=== PATIENT | male | born 1965 | race Caucasian/White ===

== ENCOUNTER 2016-06-07 21:59 | Emergency (ER) | payer MEDICAID | END 2016-06-08 00:18 | disposition home or self-care (01) | LOC: D.ER 21:59 | DX: J70.5 Respiratory conditions due to smoke inhalation (principal); R05 Cough; F41.9 Anxiety disorder, unspecified; I10 Essential (primary) hypertension; E78.5 Hyperlipidemia, unspecified; F17.200 Nicotine dependence, unspecified, uncomplicated ==

== ENCOUNTER 2016-06-08 18:46 | Emergency (ER) | payer MEDICAID | END 2016-06-08 22:10 | disposition home or self-care (01) | LOC: D.ER 18:46 | DX: T26.12XA Burn of cornea and conjunctival sac, left eye, initial encounter (principal); T26.11XA Burn of cornea and conjunctival sac, right eye, initial encounter; X08.8XXA Exposure to other specified smoke, fire and flames, initial encounter; Y93.89 Activity, other specified; Y92.89 Other specified places as the place of occurrence of the external cause; H57.13 Ocular pain, bilateral; F41.9 Anxiety disorder, unspecified; I10 Essential (primary) hypertension; E78.5 Hyperlipidemia, unspecified; F17.200 Nicotine dependence, unspecified, uncomplicated ==

== ENCOUNTER 2016-11-30 18:10 | Emergency (ER) | payer MEDICARE ==
[2016-11-30 19:30] LABS: BASOPHILS 0.2 % (0-2); EOSINOPHILS 0.7 % (0-7); HEMATOCRIT 43.5 % (42.0-54.0); HEMOGLOBIN 15.3 g/dL (13.5-17.5); IMMATURE GRANULOCYTES 0.4 % (0-5); LYMPHOCYTES 25.9 % (15-50); MCH 30.8 pg (26.0-34.0); MCHC 35.2 g/dL (31.0-37.0); MCV 87.5 fL (80.0-100.0); MEAN PLATELET VOLUME 8.7 fL (7.4-10.4); MONOCYTES 6.8 % (2-11); PLATELET COUNT 294 10x3/uL (130-400); RBC 4.97 10x6/uL (4.20-6.10); RDW 12.8 % (11.5-14.5); WBC 10.7 10x3/uL (4.8-10.8)
[2016-11-30 19:45] LABS: CALC OSMOLALITY 282 mosm/kg (275-300); CALCIUM 9.8 mg/dL (8.5-10.1); CARBON DIOXIDE 25.4 mmol/L (21.0-32.0); CHLORIDE - SERUM 104 mmol/L (98-107); GLUCOSE 110 mg/dL (74-106); POTASSIUM - SERUM 3.4 mmol/L (3.5-5.1); SODIUM 141 mmol/L (136-145); UREA NITROGEN 15 mg/dL (7-18); eGFR NON AFRICAN AMERICAN 84 mL/min (90-120)
== END 2016-11-30 21:07 | disposition home or self-care (01) ==
LOC: D.ER 18:10
PROVIDERS: Emergency Medicine
DX: J01.90 Acute sinusitis, unspecified (principal); F17.200 Nicotine dependence, unspecified, uncomplicated

== ENCOUNTER → 2016-12-08 11:56 | Outpatient (CLI) | payer MEDICARE | END | disposition home or self-care (01) | LOC: D.CT 12-07 12:00 | DX: G45.9 Transient cerebral ischemic attack, unspecified (principal) ==

== ENCOUNTER → 2017-06-26 12:43 | Outpatient (CLI) | payer MEDICARE | END | disposition home or self-care (01) | LOC: D.US 12:43 | DX: I65.23 Occlusion and stenosis of bilateral carotid arteries (principal) ==

== ENCOUNTER 2018-04-05 12:08 | Inpatient (IN) | payer MEDICARE ==
[~2018-04-05] VITALS: Ht 182.9 cm; Wt 127.3 kg
--- NOTE | ~2018-04-05 | HEMODYNAMI ---
PATIENT:TAMARA JOHNSON MEDICAL RECORD: [id number] : 67 LOCATION:D. ADMISSION DATE: 04/05/18 Generatedon:04/05/201815:07 Patient name: TAMARA JOHNSON Patient #: [id number] SSN: D OB: 1965 Date of study: 04/05/2018 Page: Of Hemodynamic Procedure Report Patient Data Patient Demographics Procedure consent was obtained First Name: TAMARA Gender: Male Last Name: ELIZABETH : 1965 Middle Initial: D Age: 52 year(s) Patient #: [id number] Race: Unknown Additional ID: [id number] Contact details [address]: [address] [place] [address] State: [place] City: [place] Zip code: [address] Past Medical History Allergies: No known allergies Admission Admission Data Admission Date: 04/05/2018 Admission Time: 12:08 Procedure Procedure Types Cath Procedure Diagnostic Procedure LHC LHC w/Coronaries Procedure Description Procedure Date Procedure Date: 04/05/2018 Procedure Start Time: 14:50 Procedure End Time: 15:03 Procedure Staff Name Function Alfonso Jurado MD Performing Physician Edy Minor RT Monitor Shelly Cordero RT Scrub Nabila Rao RT Scrub Saskia Burns RN Nurse Procedure Data Cath Procedure Fluoroscopy Diagnostic fluoroscopy Total fluoroscopy Time: 3.6 time: 3.6 min min Diagnostic fluoroscopy Total fluoroscopy dose: dose: 1050 mGy 1050 mGy Contrast Material Contrast Material Type Amount (ml) Isovue 300 84 Entry Location Entry Primary Successful Side Size Upsize Upsize Entry Closure [place] ccessful Closure Location (Fr) 1 (Fr) 2 (Fr) Remarks Device Remarks Radial Right 6 Fr Mechanical artery Short Compression Diagnostic catheters Device Type Used For End Catheter Placement DIAGNOSTIC [place] 110cm 5 LV Angiography Fr catheter ([id number]) Procedure Complications No complications Procedure Medications Medication Administration Route Dosage Versed I.V. 2 mg Fentanyl I.V. 50 mcg Versed I.V. 2 mg Fentanyl I.V. 50 mcg 0.9% NaCl I.V. 100 ml/hr Oxygen etCO2 Nasal cannula 2 l/min Lidocaine 2% added to field 20 Heparin Flush Bag added to field 2 bags (1000units/500ml NS) Heparin Bolus I.V. 4000 units Integrilin (Bolus I.V. 11.3 ml 2mg/ml) Hemodynamics Rest Heart Rate: 84 (bpm) Snapshots Pre Cath Intra NCS Post Cath Vital Signs Time Heart Resp SPO2 etCO2 NIBP (mmHg) Rhythm Pain Sedation Rate (ipm) (%) (mmHg) Status Level (bpm) 14:40:22 81 22 98 30 142/77(105) NSR 0 (11) 10(A) , No pain 14:44:38 84 19 100 32.3 147/81(106) NSR 0 (11) 10(A) , No pain 14:48:52 89 17 96 35.3 122/68(84) NSR 0 (11) 10(A) , No pain 14:53:03 99 15 96 28.5 98/54(70) NSR 0 (11) 9(A) , No pain 14:58:07 81 11 97 10.5 109/58(79) NSR 0 (11) 9(A) , No pain 15:02:17 87 12 99 30.7 114/69(79) NSR 0 (11) 10(A) , No pain Medications Time Medication Route Dose Verified Delivered Reason Notes Effectiveness by by 14:45:10 Oxygen etCO2 2 Alfonso Saskia used for Nasal l/min Adrien Burns procedure cannula RN 14:45:21 Lidocaine 2% added 20ml Alfonso Alfonso for local to vial Adrien Jurado MD anesthetic field 14:45:31 Heparin Flush added 2 Alfonso Alfonso used for Bag to bags Adrien Jurado MD procedure (1000units/500ml field NS) 14:45:43 0.9% NaCl I.V. 100 Alfonso Saskia used for ml/hr Adrien Burns glass inspector 14:47:09 Fentanyl I.V. 50 Alfonso Saskia for sedation mcg Adrien Burns RN 14:47:48 Versed I.V. 2 mg Alfonso Saskia for sedation Adrien Burns RN 14:51:21 Versed I.V. 2 mg Alfonso Saskia for sedation Adrien Burns RN 14:51:34 Fentanyl I.V. 50 Alfonso Kruger for sedation mcg Adrien Burns RN 14:51:43 Heparin Bolus I.V. 4000 Alfonso Hamilton for verif ied units Adrien Jurado MD anticoagulation with Dr. Jurado 14:51:45 Integrilin I.V. 11.3 Alfonso Kruger for waste d (Bolus 2mg/ml) ml Adrien Burns anticoagulation 2.7mL systems technician Log Time Note 14:25:57 Diagnostic Cath Status : Elective 14:26:38 Saskia Burns RN sent for patient. Start room use. 14:26:39 Time tracking: Regular hours (M-F 7:00 - 5:00) 14:26:44 Plan of Care:Hemodynamics will remain stable., Cardiac rhythm will remain stable., Comfort level will be maintained., Respiratory function will remain adequate., Patient/ family verbilizes understanding of procedure., Procedure tolerated without complication., Recovers from procedure without complications.. 14:39:09 Patient received from ED to CCL 2 Alert and oriented. Tansferred to table in Supine position. 14:39:10 Warm blankets applied, and eber hugger turned on for patient comfort. 14:39:10 Correct patient and procedure confirmed by team. 14:39:11 Signed procedure consent form obtained from patient. 14:39:13 Baseline sample Acquired. 14:39:13 ECG and BP/O2 sat monitors applied to patient. 14:39:13 Vital chart was started 14:39:16 Rhythm: sinus rhythm 14:39:17 Full Disclosure recording started 14:40:46 H&P Date Dictated: 04/05/2018 Emergent; H&P N/A. 14:40:48 Pre-procedure instructions explained to patient. 14:40:48 Pre-op teaching completed and patient verbalized understanding. 14:40:50 Family unavailable. 14:40:56 Patient NPO since Breakfast. 14:41:08 Patient allergic to No known allergies 14:41:10 Is the patient allergic to Iodine/contrast media? No. 14:41:15 Is patient on blood thinner?Yes 14:41:30 ACC The patient was administered the following blood thiners within the last 24 hours: ACCPlavix 14:41:32 Patient diabetic? Yes. 14:41:34 If diabetic: On Metformin? No 14:41:35 ----Pre-sedation anethsthesia assessment.---- 14:41:37 Previous problem with sedation/anesthesia? No ? 14:41:39 Snore? Yes 14:41:40 Sleep apnea? No 14:41:42 Deviated septum? No 14:41:43 Opens mouth fully? Yes 14:41:44 Sticks out tongue? Yes 14:41:47 Airway obstruction? No ? 14:41:50 Dentures? No ? 14:41:53 Pre procedure: right dorsailis pedis pulse 2+ Normal; easily identifiable; not easily obliterated 14:41:57 Modified Girish's test Ulnar < 7 seconds 14:42:01 Patient pain scale 0/10 ?. 14:42:15 IV patent on arrival in left hand with 0.9% NaCl at 10ml/hr. 14:42:29 Lab results completed and on chart. 14:42:32 Right Radial & Right Groin area was prepped with chlora-prep and draped in sterile fashion 14:42:33 Alarms reviewed by R. N. 14:42:33 Sharps counted by scrub and verified by R.N. 14:45:10 Oxygen 2 l/min etCO2 Nasal cannula was administered by Saskia Burns RN; used for procedure; 14:45:21 Lidocaine 2% 20ml vial added to field was administered by Alfonso Jurado MD; for local anesthetic; 14:45:31 Heparin Flush Bag (1000units/500ml NS) 2 bags added to field was administered by Alfonso Jurado MD; used for procedure; 14:45:43 0.9% NaCl 100 ml/hr I.V. was administered by Saskia Burns RN; used for procedure; 14:46:54 --------ALL STOP TIME OUT------ 14:46:55 Final Timeout: patient, procedure, and site verified with staff and physician. All members of the team are in agreement. 14:46:56 Right Radial & Right Groin site verified by team. 14:47:00 Fire Safety Assessment: A--An alcohol-based skin anteseptic being used preoperatively., C--Open oxygen or nitrous oxide is being used., D--An ESU, laser, or fiber-optic light is being used. 14:47:04 Physical assessment completed. ASA score P 2 - A patient with mild systemic disease as per Alfonso Jurado MD. 14:47:07 Sedation plan: IV Moderate Sedation Medication:Versed, Fentanyl 14:47:09 Fentanyl 50 mcg I.V. was administered by Saskia Burns RN; for sedation; 14:47:14 Use device set Radial Dx or PCI 14:47:15 ACIST Syringe (06453) opened to sterile field. 14:47:15 Medline Cath Pack ([id number]) opened to sterile field. 14:47:16 Bag Decanter (2002S) opened to sterile field. 14:47:16 DIAGNOSTIC WIRE .035 260cm J wire (744934) opened to sterile field. 14:47:17 ACIST Hand Control (74603) opened to sterile field. 14:47:17 ACIST Manifold (27238) opened to sterile field. 14:47:18 Tegaderm 4 x 4 (1626W) opened to sterile field. 14:47:18 MBrace Wrist Support ([id number]) opened to sterile field. 14:47:32 SHEATH 6FR Slender (60-2236) opened to sterile field. 14:47:48 Versed 2 mg I.V. was administered by Saskia Burns RN; for sedation; 14:50:10 Procedure started. 14:50:20 Local anesthetic to right radial artery with Lidocaine 2% by Alfonso Jurado MD.INITIAL ACCESS ONLY 14:50:30 A 6 Fr Short sheath was inserted into the Right Radial artery 14:50:48 Zero performed for pressure channel P1 14:50:51 Zero performed for pressure channel P1 14:50:54 Zero performed for pressure channel P1 14:50:56 Zero performed for pressure channel P1 14:51:21 Versed 2 mg I.V. was administered by Saskia Burns RN; for sedation; 14:51:34 Fentanyl 50 mcg I.V. was administered by Saskia Burns RN; for sedation; 14:51:43 Heparin Bolus 4000 units I.V. was administered by Alfonso Jurado MD; for anticoagulation; verified with Dr. Jurado 14:51:45 Integrilin (Bolus 2mg/ml) 11.3 ml I.V. was administered by Saskia Burns RN; for anticoagulation; wasted 2.7mL 14:51:48 A DIAGNOSTIC [place] 110cm 5 Fr catheter ([id number]) was advanced over the wire and used for LV Angiography. 14:51:53 LV angiography performed. 14:52:43 EF : 60 % 14:52:49 LCA angiography performed. 14:53:44 RCA angiography performed. 14:53:54 Catheter removed. 14:54:41 6 Fr ar 2 sh guide catheter was inserted over the wire 14:54:48 GUIDE 6FR AR 2.0 SH catheter ([id number]) opened to sterile field. 14:54:55 CHOICE PT Extra Support 182cm wire ([id number]) opened to sterile field. 14:56:27 cptes wire advanced. 14:57:55 Place stent Inflation Number: 1 A INTEGRITY RX 2.5 x 12 stent ([id number]) was prepped and advanced across the R PDA. The stent was deployed at 13 IMANI for 0:38 (min:sec). 14:58:16 INFLATOR Merit BasixCompak ([id number]) opened to sterile field. 14:59:48 Place stent Inflation Number: 1 A INTEGRITY RX 3.5 x 26 stent ([id number]) was prepped and advanced across the Mid RCA. The stent was deployed at 15 IMANI for 0:15 (min:sec). 15:00:14 Stent catheter was removed intact over wire. 15:00:15 Wire removed. 15:00:22 Guide catheter removed. 15:00:31 Sheath removed intact; hemostasis achieved with Mechanical Compression to the Right Radial artery. 15:00:36 Contrast amount:Isovue 300 84ml. 15:02:07 Procedure ended.(Physican Out) 15:02:18 Fluoroscopy time 03.60 minutes. 15:02:23 Fluoroscopy dose: 1050 mGy 15:02:23 Flurop Dose total: 1050 15:02:24 TR band inflated with 10cc of air. 15:02:32 Sharps counted by scrub and verified by R.N. 15:02:33 Insertion/operative site no bleeding no hematoma. 15:02:37 Post-op/insertion site Right Radial artery dressed using a 4 x 4 and Tegaderm. 15:02:45 Post right radial artery:stable 15:02:46 Post Procedure Pulses reassessed and unchanged 15:02:50 Post-procedure physical assessment completed. ASA score P 2 - A patient with mild systemic disease as per Alfonso Jurado MD. 15:02:53 Post procedure rhythm: sinus rhythm 15:02:55 Post procedure instruction explained to patient.Patient verbalizes understanding. 15:02:56 Procedure and supply charges have been captured, reviewed, submitted and are correct. 15:03:00 Procedure Complication : No complications 15:03:03 Vital chart was stopped 15:03:03 See physician's report for complete and final results. 15:03:06 Report given to PCU. 15:03:10 Patient transfered to PCU with Bed. 15:03:12 Procedure ended. 15:03:12 Full Disclosure recording stopped 15:03:19 ACC-PCI Only Patient was given prescriptions, or instructed by Alfonso Jurado MD to start/continue the following medications upon discharge: Plavix 15:03:20 End room use (Document Last) Intervention Summary Intervention Notes Time ActionType Lesion and Equipment Action# Pressure Duration Attributes Used 14:57:55 Place stent R PDA INTEGRITY RX 1 13 00:38 2.5 x 12 stent ([id number]) 14:59:48 Place stent Mid RCA INTEGRITY RX 1 15 00:15 3.5 x 26 stent ([id number]) Device Usage Item Name Manufacture Quantity Catalog Number Hospital Part Current [facility] Lot# / Charge Number Stock Stock Serial# Code ACIST Acist 1 86867 719404 782672 168752 20 Syringe Medical (36119) Systems Inc Medline Cath Medline 1 [id number] 572378 09672 456518 5 Pack ([id number]) Bag Decanter Microtek 1 2001S 492687 87200 892150 5 () Medical Inc. DIAGNOSTIC St Raghav 1 105944 104281 725927 793691 30 WIRE .035 260cm J wire (401148) ACIST Hand Acist 1 95666 668037 780149 212423 5 Control Medical (54442) Systems Inc ACIST Acist 1 80165 716824 342976 383685 5 Manifold Medical (39953) Systems Inc Tegaderm 4 x 3M 1 1626W 112134 284208 402001 5 4 (1626W) MBrace Wrist Advanced 1 140-0250-00 895603 66575 709398 5 Support Vascular ([id number]) Dynamics SHEATH 6FR Terumo 1 [id number] 717407 222776 380354 5 Slender (80-1060) DIAGNOSTIC Terumo 1 40-6723 497845 352463 869862 5 [place] 110cm 5 Fr catheter (817872) GUIDE 6FR AR Medtronic 1 [id number] 875290 07592 498539 1 2.0 SH catheter ([id number]) CHOICE PT Harris 1 [id number] 658988 853624 312392 5 Extra Scientific Support 182cm wire ([id number]) INTEGRITY RX Medtronic 1 [id number] 432934 582403 526695 5 [id number] 2.5 x 12 stent ([id number]) INFLATOR [facility] 1 [id number] 763956 356479 130316 15 [facility] Medical BasixCompak (OP0289) INTEGRITY RX Medtronic 1 [id number] 048968 193515 510545 5 [id number] 3.5 x 26 stent ([id number]) Signature Audit [place] Stage Time Signature Unsigned Intra-Procedure 04/05/2018 Edy Minor RT(Rosa) 3:07:14 PM Signatures Monitor : Edy Minor RT Signature : Date : Time : [id number] [place] [address]
--- NOTE | ~2018-04-05 | HEMODYNAMI ---
PATIENT:TAMARA JOHNSON MEDICAL RECORD: [id number] : 67 LOCATION:D. D.2117 ADMISSION DATE: 04/05/18 Generatedon:04/08/201810:56 Patient name: TAMARA JOHNSON Patient #: [id number] SSN: D OB: 1965 Date of study: 04/08/2018 Page: Of Hemodynamic Procedure Report Patient Data Patient Demographics Procedure consent was obtained First Name: TAMARA Gender: Male Last Name: ELIZABETH : 1965 Middle Initial: D Age: 52 year(s) Patient #: [id number] Race: Unknown Additional ID: [id number] Contact details Address: [address] [place] [address] State: [place] City: [place] Zip code: [address] Past Medical History Allergies: No known allergies Admission Admission Data Admission Date: 04/05/2018 Admission Time: 15:06 Room #: 2117 Procedure Procedure Types Cath Procedure Diagnostic Procedure FFR/IVUS Intra-Coronary IVUS Initial Sedation Charges Moderate Sedation up to 15 minutes PCI Procedure Coronary Stent Coronary Stent Initial x2 Procedure Description Procedure Date Procedure Date: 04/08/2018 Procedure Start Time: 10:34 Procedure End Time: 10:56 Procedure Staff Name Function Alfonso Jurado MD Performing Physician Jessica Corbin RT Monitor Kavin Killian RN Nurse Jessica Corbin RT Scrub Procedure Data Cath Procedure Fluoroscopy Diagnostic fluoroscopy Total fluoroscopy Time: 5.5 time: 5.5 min min Diagnostic fluoroscopy Total fluoroscopy dose: 604 dose: 604 mGy mGy Contrast Material Contrast Material Type Amount (ml) Isovue 300 111 Entry Location Entry Primary Successful Side Size Upsize Upsize Entry Closure Succes sful Closure Location (Fr) 1 (Fr) 2 (Fr) Remarks Device Remarks Femoral Right 6 Fr Exoseal artery Short Estimated blood loss: 10 ml Procedure Complications No complications Procedure Medications Medication Administration Route Dosage 0.9% NaCl I.V. 100 ml/hr Oxygen etCO2 Nasal cannula 2 l/min Heparin Flush Bag added to field 2 bags (1000units/500ml NS) Lidocaine 2% added to field 20 Heparin Bolus I.V. 4000 units Nitroglycerin IC/IA I.C. 200 mcg Hemodynamics Rest Heart Rate: 67 (bpm) Snapshots Pre Cath Intra NCS Post Cath Vital Signs Time Heart Resp SPO2 etCO2 NIBP (mmHg) Rhythm Pain Sedation Rate (ipm) (%) (mmHg) Status Level (bpm) 10:24:16 67 19 100 37.2 155/97(130) NSR 0 (11) 10(A) , No pain 10:28:42 58 11 100 35.6 134/79(99) NSR 0 (11) 10(A) , No pain 10:32:58 53 11 99 40.2 117/71(101) NSR 0 (11) 10(A) , No pain 10:37:27 55 15 97 28.8 118/66(81) NSR 0 (11) 9(A) , No pain 10:41:55 53 19 97 15.9 111/65(85) NSR 0 (11) 9(A) , No pain 10:46:17 60 19 96 2.2 107/66(81) NSR 0 (11) 9(A) , No pain 10:50:39 53 19 96 13.6 113/64(82) NSR 0 (11) 10(A) , No pain 10:55:03 53 9 97 34.1 118/70(82) NSR 0 (11) 10(A) , No pain Medications Time Medication Route Dose Verified Delivered Reason Notes Effectiveness by by 10:26:02 0.9% NaCl I.V. 100 Kavin Kavin Per physician ml/hr Constantin Killian RN RN 10:26:13 Oxygen etCO2 2 Kavin Kavin for low 02 sats Nasal l/min Constantin Killian cannula RN RN 10:26:38 Heparin Flush added 2 Kavin Kavin used for Bag to bags Constantin Killian procedure (1000units/500ml field RN RN NS) 10:26:50 Lidocaine 2% added 20ml Kavin Kavin for local to vial Constantin Killian anesthetic field RN RN 10:37:47 Heparin Bolus I.V. 4000 Kavin Kavin for units Constantin Killian anticoagulation RN RN 10:45:09 Nitroglycerin I.C. 200 Kavin Alfosno for IC/IA [facility] [place] Constantin Jurado MD vasodilation biogeographer Log Time Note 9:56:54 Time tracking: Regular hours (M-F 7:00 - 5:00) 9:56:59 Plan of Care:Hemodynamics will remain stable., Cardiac rhythm will remain stable., Comfort level will be maintained., Respiratory function will remain adequate., Patient/ family verbilizes understanding of procedure., Procedure tolerated without complication., Recovers from procedure without complications.. 9:59:00 Kavin Killian RN sent for patient. Start room use. 10:06:49 Patient received from Med II to CCL 3 Alert and oriented. Tansferred to table in Supine position. 10:06:50 Warm blankets applied, and eber hugger turned on for patient comfort. 10:06:50 Correct patient and procedure confirmed by team. 10:06:53 Signed procedure consent form obtained from patient. 10:06:54 ECG and BP/O2 sat monitors applied to patient. 10:10:00 Full Disclosure recording started 10:10:15 Use device set CATH PACK 10:10:18 Use device set TAUTH PCI 10:10:23 SHEATH 6FR [place] ([id number]) opened to sterile field. 10:10:25 ACIST Syringe (12301) opened to sterile field. 10:10:25 ACIST Hand Control (83138) opened to sterile field. 10:10:26 ACIST Manifold (11147) opened to sterile field. 10:10:26 Medline Cath Pack ([id number]) opened to sterile field. 10:10:27 Bag Decanter (2002S) opened to sterile field. 10:10:27 DIAGNOSTIC WIRE .035 260cm J wire (840752) opened to sterile field. 10:10:28 INFLATOR Merit BasixCompak (AU0093) opened to sterile field. 10:10:29 CHOICE PT Extra Support 182cm wire ([id number]) opened to sterile field. 10:10:54 IV RIGHT HAND NOT WORKING. 10:11:09 IV started by Kavin Killian RN inright forearm with a 20 gauge IV catheter with 0.9% NaCl at KVO. 10:11:18 Previous problem with sedation/anesthesia? No ? 10:11:19 Snore? Yes 10:11:20 Sleep apnea? No 10:11:21 Deviated septum? No 10:11:25 Opens mouth fully? Yes 10:11:27 Sticks out tongue? Yes 10:11:31 Airway obstruction? Yes COPD 10:11:33 Dentures? No ? 10:11:50 H&P Date Dictated: 04/05/2018 Within 30 days and on chart.. 10:11:51 Pre-procedure instructions explained to patient. 10:11:52 Pre-op teaching completed and patient verbalized understanding. 10:11:54 Family unavailable. 10:11:55 Patient NPO since Midnight. 10:11:57 Is the patient allergic to Iodine/contrast media? No. 10:11:59 Is patient on blood thinner?Yes 10:12:01 ACC The patient was administered the following blood thiners within the last 24 hours: ACCPlavix 10:12:03 Patient diabetic? No. 10:12:07 Pre procedure: right dorsailis pedis pulse 2+ Normal; easily identifiable; not easily obliterated 10:12:10 Patient pain scale 0/10 ?. 10:13:28 Lab results completed and on chart. 10:22:37 Vital chart was started 10:22:41 Rhythm: sinus rhythm 10:24:22 Baseline sample Acquired. 10:26:02 0.9% NaCl 100 ml/hr I.V. was administered by Kavin Killian RN; Per physician; 10:26:13 Oxygen 2 l/min etCO2 Nasal cannula was administered by Kavin Killian RN; for low 02 sats; 10:26:38 Heparin Flush Bag (1000units/500ml NS) 2 bags added to field was administered by Kavin Killian RN; used for procedure; 10:26:50 Lidocaine 2% 20ml vial added to field was administered by Kavin Killian RN; for local anesthetic; 10:27:36 Final Timeout: patient, procedure, and site verified with staff and physician. All members of the team are in agreement. 10:27:38 Right groin site verified by team. 10:27:41 Fire Safety Assessment: A--An alcohol-based skin anteseptic being used preoperatively., C--Open oxygen or nitrous oxide is being used., D--An ESU, laser, or fiber-optic light is being used. 10:27:44 Physical assessment completed. ASA score P 2 - A patient with mild systemic disease as per Alfonso Jurado MD. 10:27:48 Sedation plan: IV Moderate Sedation Medication:Versed, Fentanyl 10:32:15 Zero performed for pressure channel P1 10:34:01 Procedure started. 10:34:25 Local anesthetic to right femoral artery with Lidocaine 2% by Alfonso Jurado MD.INITIAL ACCESS ONLY 10:35:04 A 6 Fr Short sheath was inserted into the Right Femoral artery 10:35:56 6 Fr XBLAD 3.5 guide catheter was inserted over the wire 10:36:54 CHOICE PT ES wire advanced. 10:37:47 Heparin Bolus 4000 units I.V. was administered by Kavin Killian RN; for anticoagulation; 10:38:25 Wire removed. 10:38:35 CHOICE PT Extra Support J 300cm guide wire ([id number]) opened to sterile field. 10:39:52 CHOICE PT ES 300CM wire advanced. 10:41:17 Place stent Inflation Number: 1 A INTEGRITY OTW 2.25 X 26 stent ([id number]) was prepped and advanced across the Dist LAD. The stent was deployed at 11 IMANI for 0:08 (min:sec). 10:41:28 Stent catheter was removed intact over wire. 10:43:26 Place stent Inflation Number: 2 A INTEGRITY OTW 2.25 X 18 stent ([id number]) was prepped and advanced across the Dist LAD. The stent was deployed at 15 IMAIN for 0:04 (min:sec). 10:45:09 Nitroglycerin IC/IA 200 mcg I.C. was administered by Alfonso Jurado MD; for vasodilation; 10:45:43 Stent catheter was removed intact over wire. 10:46:07 Wire redirected to CIRC. 10:46:51 IVUS catheter advanced over wire. 10:48:53 IVUS pass to Circ lesion performed. 10:48:54 IVUS catheter removed over wire. 10:51:24 Place stent Inflation Number: 1 A INTEGRITY OTW 2.5 x 14 stent ([id number]) was prepped and advanced across the Prox CX. The stent was deployed at 13 IMANI for 0:05 (min:sec). 10:51:45 Stent catheter was removed intact over wire. 10:51:45 Wire removed. 10:51:46 Guide catheter removed. 10:51:53 Sheath removed intact; hemostasis achieved with Exoseal to the Right Femoral artery. 10:51:55 Procedure ended.(Physican Out) 10:52:12 Fluoroscopy time 05.50 minutes. 10:52:16 Flurop Dose total: 604 10:52:16 Fluoroscopy dose: 604 mGy 10:52:19 Contrast amount:Isovue 300 111ml. 10:52:20 Sharps counted by scrub and verified by R.N. 10:52:21 Insertion/operative site no bleeding no hematoma. 10:52:24 Post-op/insertion site Right Femoral artery dressed using a 4 x 4 and Tegaderm. 10:52:27 Post right femoral artery:stable, clean and dry 10:52:29 Post Procedure Pulses reassessed and unchanged 10:52:32 Post-procedure physical assessment completed. ASA score P 2 - A patient with mild systemic disease as per Alfonso Jurado MD. 10:52:35 Post procedure rhythm: unchanged. 10:52:39 Estimated blood loss: 10 ml 10:52:40 Post procedure instruction explained to patient.Patient verbalizes understanding. 10:52:41 Patient needs reinforcement of post procedure teaching. 10:53:04 Procedure type changed to Cath procedure, Diagnostic procedure, FFR/IVUS, Intra-Coronary IVUS Initial, Sedation Charges, Moderate Sedation up to 15 minutes, PCI procedure, Coronary Stent, Coronary Stent Initial x2 10:53:09 Procedure Complication : No complications 10:53:12 See physician's report for complete and final results. 10:54:15 EXOSEAL 6Fr (EX600) opened to sterile field. 10:54:21 Tegaderm 4 x 4 (1626W) opened to sterile field. 10:54:42 Procedure and supply charges have been captured, reviewed, submitted and are correct. 10:56:28 Vital chart was stopped 10:56:30 Report given to PCU. 10:56:33 Patient transfered to PCU with Bed. 10:56:40 Procedure ended. 10:56:40 Full Disclosure recording stopped 10:56:43 End room use (Document Last) Intervention Summary Intervention Notes Time ActionType Lesion and Equipment Action# Pressure Duration Attributes Used 10:41:17 Place stent Dist LAD INTEGRITY 1 11 00:08 OTW 2.25 X 26 stent ([id number]) 10:43:26 Place stent Dist LAD INTEGRITY 2 15 00:04 OTW 2.25 X 18 stent ([id number]) 10:51:24 Place stent Prox CX INTEGRITY 1 13 00:05 OTW 2.5 x 14 stent ([id number]) Device Usage Item Name Manufacture Quantity Catalog Number [facility] Part Current Minim al Lot# / Charge Number Stock Stock Serial# Code SHEATH 6FR Terumo 1 [id number] 506184 866894 353411 40 [place] ([id number]) ACIST Acist 1 69231 817009 429481 374864 20 Syringe Medical (49502) Systems Inc ACIST Hand Acist 1 90578 151261 346935 648807 5 Control Medical (38334) Systems Inc ACIST Acist 1 90186 669962 503314 695984 5 Manifold Medical (68436) Systems Inc Medline Medline 1 [id number] 263691 04780 893536 5 Cath Pack ([id number]) Bag Microtek 1 2001S 289607 34987 863573 5 Decanter Medical Inc. (2001S) DIAGNOSTIC St Raghav 1 630264 687521 473284 077253 30 WIRE .035 260cm J wire (043768) INFLATOR Merit 1 OB6619 784894 890033 578229 15 [place] [employer] Medical BasixCompak (WB2818) CHOICE PT Kathleen 1 [id number] 296066 803287 487650 5 Extra Scientific Support 182cm wire (3380114W2) CHOICE PT Kathleen 1 [id number] 193991 677008 616162 5 Extra Scientific Support J 300cm guide wire (0322904A9) INTEGRITY Medtronic 1 [id number] 804392 288660 476570 8 [id number] OTW 2.25 X 26 stent ([id number]) INTEGRITY Medtronic 1 [id number] 997522 225553 749278 8 [id number] OTW 2.25 X 18 stent ([id number]) INTEGRITY Medtronic 1 [id number] 165506 143705 400219 1 [id number] OTW 2.5 x 14 stent ([id number]) EXOSEAL 6Fr Cardinal 1 EX600 320049 610912 775796 10 (EX600) Health Tegaderm 4 3M 1 1626W 014307 786626 257957 5 x 4 (1626W) Signature Audit [place] Stage Time Signature Unsigned Intra-Procedure 04/08/2018 Jessica 10:56:53 AM Counts RT(R) Signatures Monitor : Jessica Signature : Counts RT Date : Time : [address] [place] [address]
[2018-04-05] MEDS ORDERED: COUMADIN10 MG PO (12:17)
[2018-04-05] MEDS ORDERED: NEURONTIN 300300 MG PO (12:17)
[2018-04-05 12:38] LABS: BASOPHILS 0.1 % (0-2); EOSINOPHILS 3.1 % (0-7); HEMATOCRIT 44.7 % (42.0-54.0); HEMOGLOBIN 15.5 g/dL (13.5-17.5); IMMATURE GRANULOCYTES 0.3 % (0-5); LYMPHOCYTES 19.7 % (15-50); MCH 30.4 pg (26.0-34.0); MCHC 34.7 g/dL (31.0-37.0); MCV 87.6 fL (80.0-100.0); MEAN PLATELET VOLUME 9.2 fL (7.4-10.4); NEUTROPHILS 68.8 % (40-80); RDW 13.3 % (11.5-14.5); WBC 10.8 10x3/uL (4.8-10.8)
--- NOTE | 2018-04-05 12:39 | NUR ---
TO CT AT 1235
[2018-04-05 12:51] LABS: PLATELET COUNT 227 10x3/uL (130-400)
[2018-04-05 12:52] LABS: APTT 28.7 SECONDS (22.8-39.4); INR 1.07 (0.85-1.17); PROTIME 13.4 SECONDS (11.6-15.0)
[2018-04-05 12:58] VITALS: BP 128/75
[2018-04-05 13:09] LABS: ALBUMIN 3.8 g/dL (3.4-5.0); ALKALINE PHOSPHATASE 104 U/L (46-116); ALT (SGPT) 18 U/L (10-68); BILIRUBIN - TOTAL 0.55 mg/dL (0.2-1.3); CALC OSMOLALITY 287 mosm/kg (275-300); CALCIUM 9.1 mg/dL (8.5-10.1); CARBON DIOXIDE 25.8 mmol/L (21.0-32.0); CHLORIDE - SERUM 104 mmol/L (98-107); GLUCOSE 113 mg/dL (74-106); PROTEIN - SERUM 7.9 g/dL (6.4-8.2); SODIUM 143 mmol/L (136-145); UREA NITROGEN 18 mg/dL (7-18); eGFR NON AFRICAN AMERICAN 84 mL/min (90-120)
--- NOTE | 2018-04-05 13:15 | NUR ---
FINGERSTICK BLOOD SUGAR 100
[2018-04-05 13:17] LABS: CREATINE KINASE 77 UL (21-232); MAGNESIUM - SERUM 2.2 mg/dL (1.8-2.4); THYROID STIMULATING HORMONE 1.85 uIU/mL (0.36-3.74)
[2018-04-05 13:21] LABS: TROPONIN-I 0.216 ng/mL (0.000-0.060)
[2018-04-05 13:30] VITALS: BP 130/84
--- NOTE | 2018-04-05 14:23 | NUR ---
PREOP COMPLETE. PT AAO IN ROOM. DENIES NEEDS, WILL CONTINUE TO MONITOR.
--- NOTE | 2018-04-05 15:55 | NUR ---
RECIVED FROM [employer] OFFICER PER BED. TR BAND TO RT WRIST. ADMIT ASSESSMENT PER RN
[2018-04-05 16:24] VITALS: BP 110/70; Ht 182.9 cm; Wt 127.3 kg
--- NOTE | 2018-04-05 17:01 | NUR ---
WITHOUT CHNAGES OR DISTRESS NOTED AT THIS TIME. DENIES NEEDS.
[2018-04-05 19:50] VITALS: BP 122/64
--- NOTE | 2018-04-05 21:54 | NUR ---
INITAIL ROUNDS COMPLETED AT 1910 HRS. PT DENIED ANY DISCOMFORT. TR BAND IN PLACE. NO BLEEDING NOTED. WRIST SPLINT IN USE. 3CC REMOVED FORM TR BAND AT 1939 HRS. NO BLEEDING NOTED. REMAINDER OF AIR REMOVED AT 2039 HRS. NO BLEEDING OR SWELLING NOTED. SITE COVERED WITH 2X2 AND OPSITE. ASSESSMENT COMPLETED AT THAT TIME. VSS. SR PER CM HR 69. LUNGS ESSENTIALLY CTA. HEART TONES S1 S2. HERRON. PALPABLE PERIPHERAL PULSES. ABD SOFT WITH ACTIVE BS NOTED. R WRIST SITE MONITORED FOR 15 MINUTES WITH NO CHANGE IN STATUS NOTED. PM MED GIVEN, NO CHANGE TO R WRIST NOTED. PT CURRENTLY RSTING WITH EYES CLOSED. RESP EVEN AND REGULAR. SR UP X2, CALL LIGHT WITHIN REACH.
[2018-04-05 23:50] VITALS: BP 123/64
--- NOTE | 2018-04-05 23:55 | NUR ---
NO CAHNGES TO R WRIST NOTED. SITE CLEAN, DRY AND INTACT. NO SWELLING, BLEEDING OR BRUISING NOTED. SR UP X2, CALL LIGHT WITHIN REACH.
[2018-04-06 03:55] VITALS: BP 144/66
--- NOTE | 2018-04-06 04:15 | NUR ---
PT RESTING WITH EYES CLOSED ON L SIDE. RESP EVEN AND REGULAR NO CHANGES TO R WRIST NOTED. SR UP X2, CALL LIGHT WITHIN REACH.
--- NOTE | 2018-04-06 06:44 | NUR ---
VSS THROUGHOUT NIGHT. SR/SB PER CM. PT DENIES ANY DISCOMFORT THIS AM. R WRIST CLEAN, DRY AND INTACT. NEEDS MET; WILL CONTINUE TO MONITOR.
--- NOTE | 2018-04-06 07:49 | NUR ---
ROUNDING DONE WITH PATIENT RESTING, SPLINT SEEN TO RIGHT WRIST, REMOVED. AROUSES. DENIES NEEDS AT THIS TIME. ON HEART MONITOR SHOWING SB, HR 54. RIGHT HAND PIV SEEN WITH SALINE LOCK. BANDAID SEEN TO RIGHT WRIST.
--- NOTE | 2018-04-06 09:09 | NUR ---
NON SKID SOCKS PLACED ON PATIENT AND BED ALARM IS ON AND IN USE. PATIENT REPORTS THAT HE "FACE PLANTS AT LEAST ONCE A DAY". GLASSES ON. CANE AT BEDSIDE.
[2018-04-06 09:17] VITALS: BP 143/74
[2018-04-06 11:12] VITALS: BP 116/63
[2018-04-06 15:33] VITALS: BP 130/68
--- NOTE | 2018-04-06 16:29 | NUR ---
JOSE CRACKERS AND DIET LEMON NEW [place] GIVEN TO PATIENT PER REQUEST.
--- NOTE | 2018-04-06 19:09 | NUR ---
WHILE MAKING EVENING ROUNDS WITH SALINA CARMONA NIGHT NURSE PATIENT TELLS US THAT HIS LEFT LEG IS "GOING OUT ON ME". PATIENT IS STRUGGLING TO LIFT HIS LEFT LEG. GOOD PULSES AND GOOD REFLEXES TO IT. PATIENT SAID THAT HE CAME INTO THE ER FOR THIS. BOTH MYSELF AND KRISTINE TOLD HIM THAT THIS IS THE FIRST HE HAS TOLD US.
[2018-04-06 20:10] VITALS: BP 125/66
--- NOTE | 2018-04-06 22:18 | NUR ---
INITIAL ROUNDS COMPLETED AT 1905 HRS. PT STAED HAVING DIFFICULTY MOVING L LEG AND HAS C/O PAIN FROM L HIP TO UNER L KNEE. PALPABLE L FEMORAL, L POPLITEAL AND L PEDAL PULSES . GOOD REFLEXES BUT PT ONLY ABLE TO MOVE LEG SLIGHT UPWARDS. ASSESSMENT COMPLETED AT 1950 HRS. VSS. SR PER CM HR 78. IV TO R HAND SL. DRESSING TO R WRIST CLEAN, DRY AND INTACT WITHOUT SWELLING, BRUISING OR BLEEDING. PALPABLE PERIPHERAL PULSES. LUNGS ESSENTIALLY CTA. FUNGAL INFECTION NOTED TO TOENAILS. SEVERAL SMALL SORES NOTED TO BILAT BALLS OF FEET. TYLENOL 650MG PO GIVEN FOR C/O LEG PAIN. STATES HE DOESN'T TAKE ANY NARCOTICS. DR WHYTE NOTIFIED AT 2024 OF PT/S C/O L LEG PAIN IMPAIRED ROM. NO NEW ORDERS. PT STANDING AT SINK BATHING SELF AT 2119 HRS. NO DISTRESS NOTED. PM MEDS GIVEN. PT CURRENTLY WATCHING TV. SR UP X2, CALL LIGHT WITHIN REACH.
[2018-04-06 23:55] VITALS: BP 123/61
--- NOTE | 2018-04-07 00:12 | NUR ---
PT RESTING WITH EYES CLOSED. RESP EVEN AND REGULAR. SR UP X2, CALL LIGHT WITHIN REACH.
--- NOTE | 2018-04-07 02:31 | NUR ---
PT RESTING WITH EYES CLOSED. RESP EVEN AND REGULAR. SR UP X2,CALL LIGHT WITHIN REACH.
[2018-04-07 03:55] VITALS: BP 129/77
--- NOTE | 2018-04-07 04:59 | NUR ---
PT RESTING WITH EYES CLOSED. RESP EVEN AND REGULAR. SR UP X2, CALL LIGHT WITHIN REACH.
--- NOTE | 2018-04-07 05:44 | NUR ---
VSS THROUGHOUT NIGHT. PT RESTED WELL DURING SHIFT. NEEDS MET; WILL CONTINUE TO MONITOR.
--- NOTE | 2018-04-07 07:21 | NUR ---
ROUNDING DONE WITH PATIENT LAYING ON RIGHT SIDE. DENIES NEEDS AT THIS TIME. MOANING A LITTLE. WHEN ASKED WHAT WAS WRONG, CESAR REPLIES "I JUST TURNED OVER". WAS TOLD IN REPORT THAT HE WAS UP AND HAD A SHOWER LAST NIGHT. ON HEART MONITOR SHOWING SB, HR 58. ON ROOM AIR. RIGHT HAND PIV SEEN WITH SALINE LOCK.
--- NOTE | 2018-04-07 07:44 | NUR ---
PATIENT TO REFUSE SCD'S HE IS UP AND DOWN TO RESTROOM.
--- NOTE | 2018-04-07 08:49 | NUR ---
PATIENT STATES THAT HE USED TO BE ON NEURONTIN A YEAR AGAIN FOR HIS NEUPPATHY TO HIS LEFT LEG. I ASKED HIM WHY HE STOPPED TAKING IT AND HE REPLIED, " CAUSE I'M HOMELESS AND CAN'T GET THE MEDICATION". I ASKED HIM TO PLEASE ASK THE DOCTOR IF WE CAN RE-START THE MEDICATION.
[2018-04-07 08:50] VITALS: BP 138/72
[2018-04-07 12:21] VITALS: BP 131/76
--- NOTE | 2018-04-07 12:49 | NUR ---
DENIES NEEDS AT THIS TIME, AWAITING ROUNDING WITH DR WHYTE TO ASK ABOUT NEURONTIN.
[2018-04-07 15:48] VITALS: BP 136/73
[2018-04-07 19:55] VITALS: BP 137/69
[2018-04-07 23:50] VITALS: BP 152/64
--- NOTE | 2018-04-08 00:19 | NUR ---
INITIAL ROUNDS COMPLETED AT 1914 HRS. REQUESTS TYLENOL FOR C/O L LEG PAIN. TYLENOL 650MG PO GIVEN AT 1922 HRS. ASSESSMENT COMPLETED AT 1954 HRS. VSS. SR PER CM HR 77. IV TO R HAND SL. R WRIST CLEAN, DRY AND INTACT. LUNGS ESSENTIALLY CTA. L LEG WITH IMPAIRED ROM. HERRON. PALPABLE PEDAL PULSES. PM MARINA GIVEN. REMINDED PT NPO AFTER MIDNIGHT FOR AM PTCA. STATED UNDERSTANDING. PT CURRENTLY RESTING WITH EYES CLOSED. RESP EVEN AND REGULAR. SR UP X2,CALL LIGHT WITHIN REACH.
--- NOTE | 2018-04-08 02:51 | NUR ---
PT RESTING WITH EYES CLOSED. RESP EVEN AND REGULAR. SR UP X2, CALL LIGHT WITHIN REACH.
[2018-04-08 03:43] VITALS: BP 143/67
--- NOTE | 2018-04-08 05:15 | NUR ---
VSS. HIBICLENS BATH DONE. PT DENIES ANY DISCOMFORT. WILL CONTINUE TO MONITOR.
[2018-04-08 08:21] VITALS: BP 148/70
--- NOTE | 2018-04-08 10:06 | NUR ---
PRE-OPS GIVEN. TO FLUE GAS ANALYST BY BED.
--- NOTE | 2018-04-08 11:16 | NUR ---
BACK FROM SENIOR ECOLOGIST. VS WNL. RIGHT GROIN STABLE WITHOUT BLEEDING OR HEMATOMA NOTED. WILL MONITOR.
[2018-04-08 13:34] VITALS: BP 168/80
[2018-04-08] MEDS ORDERED: BAYER CHEWABLE81 MG PO (13:54)
[2018-04-08] MEDS ORDERED: TOPROL XL25 MG PO (13:56)
[2018-04-08] MEDS ORDERED: PRAVACHOL20 MG PO (13:57)
[2018-04-08] MEDS ORDERED: PLAVIX75 MG PO (13:57)
--- NOTE | 2018-04-08 15:16 | NUR ---
BED REST UP. GROIN STABLE.
--- NOTE | 2018-04-08 15:20 | NUR ---
IV AND TELEMETRY DCD. DC PLANS GIVEN. UNDERSTANDING VOICED. HAS NO RIDE, NO CAR AND NO DESTINATION. REFUSES TO RIDE THE BUS AND REFUSES TO GO TO [facility] AVAILABLE IN [place]. ESCORTED TO FRONT DOOR BY W/C.
--- NOTE | 2018-04-08 15:58 | MORECARE ---
CASE MANAGEMENT DISCHARGE SUMMARY PATIENT: TAMARA JOHNSON UNIT: [id number] ADM DATE: 04/05/18 AGE: 52 : 67 SEX: M ROOM/BED: D.2117 AUTHOR: AMRITA WOODSON PHYSICIAN: REFERRING PHYSICIAN: ALINE WHYTE MD DATE OF SERVICE: 04/08/18 Discharge Plan Patient Name: TAMARA JOHNSON [facility] [facility] 1965 Planned Disposition: Home Anticipated Discharge Date: 04/08/18 Discharge Date: 04/08/2018 Expected LOS: 3 Initial Reviewer: [email or web address] Initial Review Date: 04/05/2018 Generated: 04/08/18 4:58 pm Patient Name: TAMARA JOHNSON Page 79919 at 1558 All edits/amendments must be made on the electronic document DICTATION DATE: 04/08/18 1558 ASSOCIATE PROFESSOR OF MEDIA ARTS: MAHIN 04/08/18 1558 RPT#: [id number] DC DATE:04/08/18 STATUS: DIS IN [facility] [address] [place] [address] END OF REPORT
--- NOTE | 2018-04-08 16:06 | MORECARE ---
CASE MANAGEMENT DISCHARGE SUMMARY PATIENT: TAMARA JOHNSON UNIT: [id number] ADM DATE: 04/05/18 AGE: 52 : 67 SEX: M ROOM/BED: D.2117 AUTHOR: AMRITA WOODSON PHYSICIAN: REFERRING PHYSICIAN: ALINE WHYTE MD DATE OF SERVICE: 04/08/18 Discharge Plan Patient Name: [facility]AMARA [facility]OHNSON [facility] [facility] 1965 Planned Disposition: Home Anticipated Discharge Date: 04/08/18 Discharge Date: 04/08/2018 Expected LOS: 3 Initial Reviewer: [email or web address] Initial Review Date: 04/05/2018 Generated: 04/08/18 5:06 pm DCPIA - Discharge Planning Initial Assessment Updated by [email or web address]: Miguel Maureen on 04/08/18 3:59 pm * Is the patient Alert and Oriented? Yes * How many steps to enter\exit or inside your home? NONE * PCP DR. HEMPHILL, NOT SEEN IN OVER 1 YEAR * Pharmacy [facility] [address] * Preadmission Environment Homeless * Other Environment REPORTS LIVING ON THE STREETS WHEN HE IS NOT STAYING WITH FRIENDS * Facility Name NONE * ADLs Independent * Equipment Cane * Other Equipment NO MEDICAL EQUIPMENT PROVIDER PREFERENCE * List name and contact numbers for known caregivers / representatives who currently or will assist patient after discharge: AARON GURROLA, SISTER, * Community resources currently utilized Other * Please name any agencies selected above. [facility], [facility]. * Additional services required to return to the preadmission environment? No * Can the patient safely return to the preadmission environment? Yes * Has this patient been hospitalized within the prior 30 days at any hospital? No Last DP export: 04/08/18 2:58 p Patient Name: TAMARA JOHNSON Page 30704 at 1606 All edits/amendments must be made on the electronic document DICTATION DATE: 04/08/18 1606 BAND STRAIGHTENER: MAHIN 04/08/18 1605 RPT#: [id number] DC DATE:04/08/18 STATUS: DIS IN [facility] [address] [place] [address] END OF REPORT
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
--- NOTE | 2018-04-09 11:18 | OP ---
PATIENT NAME: TAMARA JOHNSON MEDICAL RECORD: [id number] :[birth year] LOCATION:D.Sammi D.7 ADMISSION DATE:04/05/18 SURGEON: ALINE WHYTE MD DATE OF OPERATION: 04/05/2018 DATE OF SERVICE: 04/05/2018 PROCEDURES: 1. PTCA stent RCA. 2. Left heart catheterization. 3. Selective coronary angiography. 4. Left ventriculogram. INDICATION: Non-Q-wave myocardial infarction, coronary artery disease, hyperlipidemia, shortness of breath. DESCRIPTION OF PROCEDURE IN DETAIL: After informed consent was obtained and after a detailed description of the risks, benefits as well as alternative therapies, the patient elected to proceed with angiogram and angioplasty. Tamara's right radial area was prepped and draped in normal sterile fashion. Right radial artery was cannulated via modified Seldinger technique with placement of 6-Colombian sheath. All catheters exchanged through this sheath. FINDINGS: The left ventriculogram was performed in standard 30 degree MARTÍNEZ view reveals preserved cardiac wall motion, ejection fraction estimated at 55%. SELECTIVE CORONARY ANGIOGRAPHY: 1. Left main showed no significant angiographic disease. 2. Left anterior descending has at least 80% stenosis throughout the mid vessel. 3. Left circumflex has 90% stenosis throughout the mid distal vessel. 4. Right coronary has 70% stenosis in mid vessel and 95% stenosis in distal vessel. PTCA STENT OF THE RIGHT PDA: The PDA was addressed with a 2.5 x 12 mm Integrity stent. The right coronary itself was addressed with a 3.5 x 26 mm Integrity stent. Result was 0% residual throughout. OVERALL IMPRESSION: Successful percutaneous transluminal coronary angioplasty stent of the right coronary artery and patent ductus arteriosus going from 95% initial stenosis to 0% residual. PLAN: PTCA stent of the LAD and circumflex in the near future. TRANSINT:[id number] Voice Confirmation ID: [id number] DOCUMENT ID: [id number] ALINE WHYTE MD at 1118 CC: [id number] DICTATION DATE: 04/05/18 1510 BOTTOM POLISHER: 04/05/18 2226 DIS IN 04/08/18 [facility] [address] [place] [address]
--- NOTE | 2018-04-09 11:18 | EC ---
PATIENT:TAMARA JOHNSON DATE OF SERVICE: 04/05/18 SEX: M MEDICAL RECORD: [id number] DATE OF : [birth year] LOCATION:D. D.211 AGE OF PATIENT: 52 ADMISSION DATE: 04/05/18 REFERRING PHYSICIAN: INTERPRETING PHYSICIAN: ALINE JURADO MD ECHOCARDIOGRAM REPORT ECHO CHARGES 4 ECHO COMPLETE Date: 04/06/18 CLINICAL DIAGNOSIS: TX ECHOCARDIOGRAPHIC MEASUREMENTS (adult normal given) AC root (d.<3.7cm) 3.2 cm LV Septum d (<1.2 cm> 1.7 cm Valve Excursion 1.8 cm LV Septum (systole) 1.9 cm Left Atria (s.<4.0cm> 3.7 cm LVPW d(<1.2cm) 1.5 cm RV (d.<2.3cm) 4.0 cm LVPW (sytole) 2.1 cm LV diastole(<5.6CM) 5.0 cm MV E-F(>70mm/sec) cm LV systole 3.2 cm LVOT Diameter 2.0 cm MV exc.(>10mm) 1.5 cm Est.ejection fraction (50-75%) % DOPPLER: LVIT cm/sec A 87.0 cm/sec E 66.0 cm/sec LA cm/sec RVSP 25 mmHg LVOT 145 cm/sec AOP1/2T m/s Asc. Ao 197 cm/sec RVOT 108 cm/sec RA cm/sec PA 134 cm/sec AV Gradient Peak 15.45mmHg AV Mean 8.01 mmHg AV Area 2.3 cm MV Gradient Peak 5.0 mmHg MV Mean 1.90 mmHg MV Area cm COMMENTS: Terminal Block Assembler: [employer] DOMINGUEZ Bay Stocker: 1 Dr. Jurado TAPE# PACS Pericardial Effusion N DATE OF SERVICE: 04/06/2018 FINDINGS: 1. Left ventricular chamber size is within normal limits. Left ventricular systolic function is normal. Overall ejection fraction estimated at 55%. 2. Left atrium is within normal limits at 4.0 cm. Right atrium and right ventricular chamber sizes are mildly dilated. 3. Valvular structures - aortic valve demonstrates mild calcific aortic stenosis. Valve area still calculates greater than 2.0 cm-squared. There is a gradient of 16 mm across the valve. The remaining valvular structures have ECHOCARDIOGRAM REPORT [id number] TAMARA JOHNSON normal structure and motion. 4. Doppler interrogation elsewise reveals trace tricuspid regurgitation, no other valvular insufficiency or stenosis. Pulmonary systolic pressure is estimated at 25 mmHg. 5. No evidence of pericardial effusion or left ventricular thrombus. TRANSINT:[id number] Voice Confirmation ID: [id number] DOCUMENT ID: [id number] ALINE JURADO MD at 1118 CC: [id number] DICTATION DATE: 04/06/18 1535 JIG FILLER: 04/06/18 2300 DIS IN 04/08/18 [facility] [address] [place] [address]
--- NOTE | 2018-04-09 11:19 | DS ---
PATIENT:TAMARA PORTILLO :67 MEDICAL RECORD: [id number] DISCHARGE SUMMARY ADMISSION DATE: 04/05/18 DISCHARGE DATE: 04/08/18 DATE OF SERVICE: 04/08/2018 DIAGNOSES: 1. Non-Q-wave myocardial infarction. 2. Coronary artery disease. 3. Percutaneous transluminal coronary angioplasty and stent to the right coronary artery, left anterior descending, and circumflex this admission. HOSPITAL COURSE: Mr. Portillo presents with non-Q-wave myocardial infarction, found to have 3-vessel coronary artery disease, underwent successful PTCA and stent of each vessel, discharged home with the addition of aspirin, Plavix, Lopressor, metoprolol to his medical regimen. Follow up with [facility] in 1 month. TRANSINT:[id number] Voice Confirmation ID: [id number] DOCUMENT ID: [id number] ALINE WHYTE MD at 1119 CC: [id number] DICTATION DATE: 04/08/18 1056 MAINTENANCE REPRESENTATIVE: 04/08/18 2226 DIS IN 04/08/18 [place] [address] [place] [address]
--- NOTE | 2018-04-09 11:19 | OP ---
PATIENT NAME: TAMARA JOHNSON MEDICAL RECORD: [id number] :67 LOCATION:D.Sammi D.2117 ADMISSION DATE:04/05/18 SURGEON: ALINE WHYTE MD DATE OF OPERATION: 04/08/2018 PROCEDURES: 1. PTCA stent LAD. 2. PTCA stent left circumflex. 3. Intravascular ultrasound. 4. Selective coronary angiography. INDICATION: Non-Q-wave myocardial infarction. PROCEDURE IN DETAIL: After informed consent was obtained and after detailed description of risks, benefits as well as alternative therapies, the patient elected to proceed with angiogram and angioplasty. The right femoral area was prepped and draped in normal sterile fashion. Right femoral artery was cannulated via modified Seldinger technique with placement of 6-Estonian sheath. All catheters exchanged through this sheath. FINDINGS: The left anterior descending has 2 areas of 90% to 95% stenosis addressed with a 2.25 x 26 and 2.25 x 18, both Integrity stents. Result was 0% residual stenosis. Intravascular ultrasound reveals that there is 80% stenosis proximally and the circumflex was addressed with a 2.5 x 14 mm Integrity. Result was 0% residual stenosis. OVERALL IMPRESSION: Successful PTCA stent of the LAD and circumflex going from 95% initial stenosis to 0% residual. TRANSINT:[id number] Voice Confirmation ID: [id number] DOCUMENT ID: [id number] ALINE WHYTE MD at 1119 CC: [id number] DICTATION DATE: 04/08/18 1057 BONUS CLERK: 04/08/18 1113 DIS IN 04/08/18 [place] [id number] [place] [id number]
== END 2018-04-08 15:42 | disposition home or self-care (01) | DRG 248 ==
LOC: D.OPS 12:08 → D.ER 12:08 → D.M2 15:06 → EDSTATUS 04-08 07:00 → D.M2 04-08 15:42
PROVIDERS: Family Medicine; ADMIT Internal Medicine Interventional Cardiology
PROC: 4A023N7 Measurement of Cardiac Sampling and Pressure, Left Heart, Percutaneous Approach (ICD-10-PCS; 2018-04-05)
PROC: B2111ZZ Fluoroscopy of Multiple Coronary Arteries using Low Osmolar Contrast (ICD-10-PCS; 2018-04-05)
PROC: B2151ZZ Fluoroscopy of Left Heart using Low Osmolar Contrast (ICD-10-PCS; 2018-04-05)
PROC: 02713EZ Dilation of Coronary Artery, Two Arteries with Two Intraluminal Devices, Percutaneous Approach (ICD-10-PCS; principal; 2018-04-05 14:26)
PROC: 02713FZ Dilation of Coronary Artery, Two Arteries with Three Intraluminal Devices, Percutaneous Approach (ICD-10-PCS; 2018-04-08)
PROC: B240ZZ3 Ultrasonography of Single Coronary Artery, Intravascular (ICD-10-PCS; 2018-04-08)
DX: I21.4 Non-ST elevation (NSTEMI) myocardial infarction (principal); I25.10 Atherosclerotic heart disease of native coronary artery without angina pectoris; E78.5 Hyperlipidemia, unspecified; R94.31 Abnormal electrocardiogram [ECG] [EKG]; F32.9 Major depressive disorder, single episode, unspecified; Z86.73 Personal history of transient ischemic attack (TIA), and cerebral infarction without residual deficits

== ENCOUNTER 2018-06-19 19:33 | Inpatient (IN) | payer MEDICARE ==
[~2018-06-19] VITALS: Ht 182.9 cm; Wt 102.1 kg
[~2018-06-19 19:33] MED LIST: BAYER CHEWABLE81 MG PO; COUMADIN10 MG PO; NEURONTIN 300300 MG PO; PLAVIX75 MG PO; PRAVACHOL20 MG PO; TOPROL XL25 MG PO
[2018-06-19 19:58] LABS: BASOPHILS 0.2 % (0-2); EOSINOPHILS 0.6 % (0-7); HEMATOCRIT 43.7 % (42.0-54.0); HEMOGLOBIN 15.3 g/dL (13.5-17.5); IMMATURE GRANULOCYTES 0.2 % (0-5); LYMPHOCYTES 25.9 % (15-50); MCH 30.8 pg (26.0-34.0); MCV 88.1 fL (80.0-100.0); MEAN PLATELET VOLUME 10.2 fL (7.4-10.4); MONOCYTES 5.8 % (2-11); NEUTROPHILS 67.3 % (40-80); PLATELET COUNT 213 10x3/uL (130-400); RBC 4.96 10x6/uL (4.20-6.10); RDW 12.9 % (11.5-14.5); WBC 6.6 10x3/uL (4.8-10.8)
--- NOTE | 2018-06-19 20:00 | NUR ---
STROKE BAND NUMBER: [id number]
--- NOTE | 2018-06-19 20:07 | NUR ---
PT GIVEN BLANKETS.
[2018-06-19 20:08] LABS: APTT 41.9 SECONDS (22.8-39.4); INR 1.34 (0.85-1.17)
[2018-06-19 20:16] LABS: ALBUMIN 4.1 g/dL (3.4-5.0); ALKALINE PHOSPHATASE 82 U/L (46-116); ALT (SGPT) 20 U/L (10-68); BILIRUBIN - TOTAL 0.58 mg/dL (0.2-1.3); CALC OSMOLALITY 279 mosm/kg (275-300); CHLORIDE - SERUM 104 mmol/L (98-107); CREATININE - SERUM 0.7 mg/dL (0.6-1.3); GLUCOSE 116 mg/dL (74-106); POTASSIUM - SERUM 3.6 mmol/L (3.5-5.1); PROTEIN - SERUM 7.5 g/dL (6.4-8.2); SODIUM 139 mmol/L (136-145); UREA NITROGEN 16 mg/dL (7-18); eGFR NON AFRICAN AMERICAN > 90 mL/min (90-120)
[2018-06-19 20:37] LABS: CALCIUM 8.9 mg/dL (8.5-10.1); CKMB 3.3 U/L (0.0-3.6); CREATINE KINASE 105 UL (21-232); THYROID STIMULATING HORMONE 0.93 uIU/mL (0.36-3.74); TROPONIN-I < 0.017 ng/mL (0.000-0.060)
[2018-06-19 20:50] LABS: MAGNESIUM - SERUM 2.2 mg/dL (1.8-2.4)
--- NOTE | 2018-06-19 21:04 | NUR ---
PT REPORTS LEFT LEG CRAMPING AND "DRAWING UP" REQUESTING MEDICATION FOR IT. EDP GELACIO NOTIFIED.
[2018-06-19 23:16] VITALS: BP 157/84; BMI 30.6
--- NOTE | 2018-06-19 23:20 | NUR ---
PT ARRIVED TO THE FLOOR. ALERT AND ORIENTED. SPEECH SOME WHAT SLURED BUT CAN UNDERSTAND PT. WILL CONTINUE PLAN OF CARE. CALL LIGHTIN REACH.
[2018-06-20 00:20] VITALS: BP 157/84
--- NOTE | 2018-06-20 01:22 | NUR ---
I have reviewed this patient and I concur with the Shift Assessment completed by the Licensed Practical Nurse today this shift.
--- NOTE | 2018-06-20 02:31 | NUR ---
PT STARTED COMPLAINING OF HEADACHE. CT SCAN WAS JUST DONE. WAITING ON RESULTS FROM SCAN TO CALL DOCTOR OF ANY CHANGES.
--- NOTE | 2018-06-20 02:50 | NUR ---
CT FINDINGS NO CHANGE FROM THE REFERENCE EXAM. WILL FALLOW UP.
[2018-06-20 05:05] VITALS: BP 122/65
[2018-06-20 08:03] LABS: BASOPHILS 0.4 % (0-2); EOSINOPHILS 1.5 % (0-7); HEMATOCRIT 40.1 % (42.0-54.0); HEMOGLOBIN 13.8 g/dL (13.5-17.5); IMMATURE GRANULOCYTES 0.2 % (0-5); LYMPHOCYTES 43.4 % (15-50); MCH 30.2 pg (26.0-34.0); MCHC 34.4 g/dL (31.0-37.0); MCV 87.7 fL (80.0-100.0); NEUTROPHILS 43.5 % (40-80); PLATELET COUNT 187 10x3/uL (130-400); RBC 4.57 10x6/uL (4.20-6.10); WBC 5.2 10x3/uL (4.8-10.8)
[2018-06-20 08:10] LABS: CALC OSMOLALITY 281 mosm/kg (275-300); CALCIUM 8.6 mg/dL (8.5-10.1); CARBON DIOXIDE 27.5 mmol/L (21.0-32.0); CREATININE - SERUM 0.8 mg/dL (0.6-1.3); GLUCOSE 116 mg/dL (74-106); SODIUM 141 mmol/L (136-145); UREA NITROGEN 13 mg/dL (7-18); eGFR NON AFRICAN AMERICAN > 90 mL/min (90-120)
[2018-06-20 08:21] LABS: CHLORIDE - SERUM 106 mmol/L (98-107); POTASSIUM - SERUM 3.1 mmol/L (3.5-5.1)
--- NOTE | 2018-06-20 08:41 | NUR ---
PT SITTING UP IN BED. CO OF PARK. SLURRED SPEECH. NO S/S OF ACUTE DISTRESS. CL IN PLACE.
[2018-06-20 09:12] VITALS: BP 128/68
--- NOTE | 2018-06-20 09:57 | NUR ---
CALLED DR WILKINS [phone] TO REPORT PT CO OF PAIN. "MAILBOX FULL" PT OFF THE FLOOR AND IN MRI.
[2018-06-20 10:00] VITALS: BMI 30.5
[2018-06-20 11:45] LABS: CHOL - HDL RATIO 3.2 ratio (2.3-4.9); LDL-HDL RATIO 1.7 ratio (1.5-3.5)
--- NOTE | 2018-06-20 12:15 | NUR ---
Rehab Note- Acute Inpatient Rehab prescreen order received. The patient has an appropriate diagnosis for inpatient acute rehab. He has a pending PT & OT Evals- will await & see the patient's functional mobility. Will follow at this time. Thank you for this referral! Alana Smith RN CLinical Liaison, [facility] Rehab
[2018-06-20 12:17] VITALS: BP 144/62
--- NOTE | 2018-06-20 13:33 | NUR ---
PT CO OF PARK "IN BACK OF THE HEAD, THROBBING DULL PAIN." MORPHINE GIVEN PER MD ORDER. L MARINE SUPERINTENDENT WEAKER THAN R. L FOOT WEAKER THAN R. NO S/S OF ACUTE DISTRESS. CL IN PLACE.
--- NOTE | 2018-06-20 16:41 | NUR ---
OT NOTE: PT COMPLETED BED MOB WITH MOD/MAX A. PT EXHIBITS DECREASED AROM IN LLE. PT COMPLETED SIT TO STAND WITH MOD/MAX A. PT VERY FATIGUED. PT COMPLETED BUE AROM AXS . PT COMPLETED FACE WASHING AND GROOOMING WITH MIN A. THANK YOU, MIGDALIA RILEY
[2018-06-20 16:45] VITALS: BP 144/80
--- NOTE | 2018-06-20 18:16 | NUR ---
PT RESTING IN BED. UP USING URINAL. NO S/S OF ACUTE DISTRESS. CL IN PLACE.
[2018-06-20 19:18] LABS: APPEARANCE CLOUDY (CLEAR); BILIRUBIN NEGATIVE (NEGATIVE); COLOR YELLOW (YELLOW); GLUCOSE NEGATIVE (NEGATIVE); KETONE NEGATIVE (NEGATIVE); NITRITE NEGATIVE (NEGATIVE); PROTEIN TRACE mg/dL (NEGATIVE); UROBILINOGEN NORMAL (NORMAL)
[2018-06-20 19:45] LABS: UDS - AMPHET POSITIVE QUAL (NEGATIVE); UDS - BARB NEGATIVE QUAL (NEGATIVE); UDS - BENZO NEGATIVE QUAL (NEGATIVE); UDS - COCAINE NEGATIVE QUAL (NEGATIVE); UDS - OPIATE POSITIVE QUAL (NEGATIVE); UDS - PCP NEGATIVE QUAL (NEGATIVE); UDS - THC NEGATIVE QUAL (NEGATIVE)
--- NOTE | 2018-06-20 19:55 | NUR ---
PT RESTING IN BED. ALERT AND ORIENTED. NO SIGNS OF DISTRESS. BREATHING EVEN AND UNALABORED. PT STATES HEADACHE THAT WILL NOT GO AWAY. MEDICATION WILL LIGHTEN HEADCHE BUT NOT TAKE IT AWAY. IV SITE RT HAND DRESSING CLEAN DRY AND INTACT. NO SIGNS OF INFECTION. SPEECH SOMEWHAT SLURED BUT CAN UNDERSTAND WHAT PT IS SAYING. TELE MONITOR ON [address]. BOWEL SOUNDS ACTIVE. NO LOWER LEG SWELLING PRESENT. LT LEG WEAKNESS. WILL CONTINUE PLAN OF CARE. CALL LIGHT IN REACH. BED LOWERED AND LOCKED. BED RAILS UP X2.
[2018-06-20 20:03] VITALS: BP 145/81
[2018-06-21 00:23] VITALS: BP 139/59
--- NOTE | 2018-06-21 00:45 | NUR ---
I have reviewed this patient and I concur with the Shift Assessment completed by the Licensed Practical Nurse today this shift.
[2018-06-21 03:53] LABS: BASOPHILS 0.2 % (0-2); EOSINOPHILS 1.9 % (0-7); HEMATOCRIT 39.6 % (42.0-54.0); HEMOGLOBIN 13.4 g/dL (13.5-17.5); LYMPHOCYTES 47.8 % (15-50); MCH 30.2 pg (26.0-34.0); MCHC 33.8 g/dL (31.0-37.0); MCV 89.4 fL (80.0-100.0); MONOCYTES 7.6 % (2-11); NEUTROPHILS 42.5 % (40-80); PLATELET COUNT 190 10x3/uL (130-400); RBC 4.43 10x6/uL (4.20-6.10); RDW 13.2 % (11.5-14.5); WBC 5.2 10x3/uL (4.8-10.8)
[2018-06-21 04:00] LABS: ANION GAP 9.4 mmol/L (8-16); CALCIUM 8.4 mg/dL (8.5-10.1); CARBON DIOXIDE 27.2 mmol/L (21.0-32.0); POTASSIUM - SERUM 3.6 mmol/L (3.5-5.1)
[2018-06-21 04:09] LABS: CREATININE - SERUM 1.1 mg/dL (0.6-1.3)
[2018-06-21 05:19] VITALS: BP 158/97
[2018-06-21 08:25] VITALS: BP 161/80
--- NOTE | 2018-06-21 10:57 | NUR ---
Rehab Note- Will continue to follow at this time as the patient has a consult for Dr. Willard. Thank you for this referral! Alana Smith RN Clinical Liaison, [facility] Rehab
--- NOTE | 2018-06-21 11:53 | NUR ---
REFUSED THERAPY IN AM STATING THAT HE WAS TOO TIRED, THEY HAD JUST FINSHED BATHING HIM. STATED THAT HE COULD NOT DO IT RIGHT NOW. SKY MUKHERJEE, OTR/L
[2018-06-21 12:45] VITALS: BP 145/85
--- NOTE | 2018-06-21 13:44 | NUR ---
I have reviewed this patient and I concur with the Shift Assessment completed by the Licensed Practical Nurse today this shift.
[2018-06-21 13:54] VITALS: Ht 182.9 cm; Wt 102.1 kg
--- NOTE | 2018-06-21 15:38 | MORECARE ---
CASE MANAGEMENT DISCHARGE SUMMARY PATIENT: TAMARA JOHNSON UNIT: [id number] ADM DATE: 06/19/18 AGE: 53 : 67 SEX: M ROOM/BED: D.2202 AUTHOR: AMRITA WOODSON PHYSICIAN: REFERRING PHYSICIAN: EZEQUIEL CASTRO MD DATE OF SERVICE: 06/21/18 Discharge Plan Patient Name: [facility]OHNSON [facility] [facility] 1965 Planned Disposition: Anticipated Discharge Date: Discharge Date: Expected LOS: Initial Reviewer: [email or web address] Initial Review Date: 06/19/2018 Generated: 06/21/18 4:38 pm Patient Name: TAMARA JOHNSON Page [id number] at 1538 All edits/amendments must be made on the electronic document DICTATION DATE: 06/21/18 1538 PRODUCTION CREW SUPERVISOR: MAHIN 06/21/18 1538 RPT#: [id number] DC DATE: STATUS: ADM IN [facility] [address] [place] [address] END OF REPORT
[2018-06-21 16:40] VITALS: BP 185/94
[2018-06-21 20:00] VITALS: BP 131/57
[2018-06-22] VITALS: BP 141/59
[2018-06-22 03:00] VITALS: BP 139/61
[2018-06-22 05:42] LABS: BASOPHILS 0.2 % (0-2); EOSINOPHILS 2.5 % (0-7); HEMATOCRIT 40.8 % (42.0-54.0); HEMOGLOBIN 13.9 g/dL (13.5-17.5); IMMATURE GRANULOCYTES 0.2 % (0-5); LYMPHOCYTES 40.1 % (15-50); MCH 30.2 pg (26.0-34.0); MCHC 34.1 g/dL (31.0-37.0); MCV 88.7 fL (80.0-100.0); MEAN PLATELET VOLUME 10.6 fL (7.4-10.4); MONOCYTES 6.7 % (2-11); NEUTROPHILS 50.3 % (40-80); PLATELET COUNT 200 10x3/uL (130-400); RDW 12.9 % (11.5-14.5); WBC 6.4 10x3/uL (4.8-10.8)
[2018-06-22 05:59] LABS: CALC OSMOLALITY 289 mosm/kg (275-300); CALCIUM 8.7 mg/dL (8.5-10.1); CARBON DIOXIDE 30.1 mmol/L (21.0-32.0); CHLORIDE - SERUM 109 mmol/L (98-107); CREATININE - SERUM 0.9 mg/dL (0.6-1.3); GLUCOSE 104 mg/dL (74-106); POTASSIUM - SERUM 3.7 mmol/L (3.5-5.1); SODIUM 145 mmol/L (136-145); UREA NITROGEN 16 mg/dL (7-18); eGFR NON AFRICAN AMERICAN > 90 mL/min (90-120)
[2018-06-22 09:09] VITALS: BP 153/69
[2018-06-22 12:50] VITALS: BP 146/67
[2018-06-22 17:26] VITALS: BP 117/79
--- NOTE | 2018-06-22 18:39 | NUR ---
I have reviewed this patient and I concur with the Shift Assessment completed by the Licensed Practical Nurse today this shift.
--- NOTE | 2018-06-22 20:00 | NUR ---
ALERT RESTING IN BED, LEFT HAND BAR ATTENDANT SLIGHTLY WEAKER THAN RIGHT, STATES GETTING BETTER, SPEECH CLEAR AND APPROIATE, SEE SHIFT ASSESSMENT, CALL LIGHT IN REACH
[2018-06-22 20:15] VITALS: BP 173/80
[2018-06-23 00:20] VITALS: BP 174/88
[2018-06-23 05:55] VITALS: BP 189/95
[2018-06-23 07:25] LABS: BASOPHILS 0.3 % (0-2); EOSINOPHILS 2.2 % (0-7); HEMOGLOBIN 13.9 g/dL (13.5-17.5); IMMATURE GRANULOCYTES 0.1 % (0-5); LYMPHOCYTES 38.7 % (15-50); MCH 30.4 pg (26.0-34.0); MCHC 34.8 g/dL (31.0-37.0); MCV 87.5 fL (80.0-100.0); MEAN PLATELET VOLUME 9.9 fL (7.4-10.4); MONOCYTES 8.3 % (2-11); NEUTROPHILS 50.4 % (40-80); PLATELET COUNT 184 10x3/uL (130-400); RBC 4.57 10x6/uL (4.20-6.10); RDW 12.7 % (11.5-14.5); WBC 6.7 10x3/uL (4.8-10.8)
[2018-06-23 07:38] LABS: CALC OSMOLALITY 281 mosm/kg (275-300); CALCIUM 8.8 mg/dL (8.5-10.1); CARBON DIOXIDE 31.5 mmol/L (21.0-32.0); CHLORIDE - SERUM 105 mmol/L (98-107); CREATININE - SERUM 0.8 mg/dL (0.6-1.3); GLUCOSE 104 mg/dL (74-106); POTASSIUM - SERUM 3.8 mmol/L (3.5-5.1); SODIUM 141 mmol/L (136-145); UREA NITROGEN 15 mg/dL (7-18); eGFR NON AFRICAN AMERICAN > 90 mL/min (90-120)
--- NOTE | 2018-06-23 07:44 | NUR ---
AAOX4. ON ROOM AIR, TELEMETRY PRESENT, RIGHT UPPER ARM IV SALINE LOCKED, PATENT, DENIES ANY CURRENT NEEDS OR DISCOMFORTS, BED LOWERED AND LOCKED, CALL LIGHT WITHIN REACH. CPOC
[2018-06-23 08:13] VITALS: BP 162/86
[2018-06-23 10:53] VITALS: BP 145/77
--- NOTE | 2018-06-23 10:54 | NUR ---
MONITOR, MEGAN, CALLED TO REPORT A RUN OF VTACH. OBSERVED PATIENT WITH EYES CLOSED, LAYING ON LEFT SIDE, VITAL SIGNS TAKEN, DOCUMENTED, C/O SHORTNESS OF BREATH, S1 S2, REGULAR RHYTHM, DENIES ANY NEEDS OR CONCERNS, HOB ELEVATED TO 30 DEGREES, BED LOWERED AND LOCKED, CALL LIGHT WITHIN REACH. CPOC
[2018-06-23 16:29] VITALS: BP 154/70
--- NOTE | 2018-06-23 20:00 | NUR ---
ALERT RESTING IN BED, NO APPARENT DISTRESS, SEE SHIFT ASSESSMENT, CALL LIGHT IN REACH
[2018-06-23 21:07] VITALS: BP 172/84
[2018-06-24 01:43] VITALS: BP 122/49
[2018-06-24 05:16] LABS: BASOPHILS 0.2 % (0-2); EOSINOPHILS 1.7 % (0-7); HEMATOCRIT 40.3 % (42.0-54.0); HEMOGLOBIN 13.8 g/dL (13.5-17.5); IMMATURE GRANULOCYTES 0.1 % (0-5); LYMPHOCYTES 28.6 % (15-50); MCH 30.1 pg (26.0-34.0); MCHC 34.2 g/dL (31.0-37.0); MCV 87.8 fL (80.0-100.0); MEAN PLATELET VOLUME 10.2 fL (7.4-10.4); MONOCYTES 8.2 % (2-11); NEUTROPHILS 61.2 % (40-80); PLATELET COUNT 199 10x3/uL (130-400); RBC 4.59 10x6/uL (4.20-6.10)
[2018-06-24 05:36] VITALS: BP 128/50
[2018-06-24 05:53] LABS: CALC OSMOLALITY 281 mosm/kg (275-300); CALCIUM 8.9 mg/dL (8.5-10.1); CARBON DIOXIDE 28.6 mmol/L (21.0-32.0); CHLORIDE - SERUM 105 mmol/L (98-107); CREATININE - SERUM 0.7 mg/dL (0.6-1.3); GLUCOSE 101 mg/dL (74-106); POTASSIUM - SERUM 3.5 mmol/L (3.5-5.1); SODIUM 141 mmol/L (136-145); UREA NITROGEN 16 mg/dL (7-18); eGFR NON AFRICAN AMERICAN > 90 mL/min (90-120)
[2018-06-24 08:09] VITALS: BP 184/78
--- NOTE | 2018-06-24 09:24 | NUR ---
ATTEMPTED X 2 WITH OUT SUCCESS IN LEFT HAND AND RIGHT FOREARM, GOOD FLASH WHEN FLUSHED IT BLEW CATHETERS DC WITH TIP INTACT.
--- NOTE | 2018-06-24 10:29 | NUR ---
MORNING ASSESSMENT COMPLETE. SEE ASSESSMENT FLOWSHEET FOR FURTHER DETIALS. PT LYING IN BED AAO X4 TO PERSON, PLACE, TIME, AND SITUATION. DENIES NEEDS AT THIS TIME. CL IN REACH. SIDE RAILS UP X3 FOR PT SAEFTY. DC'd R UPPER ARM PIV- ILFILTRATED. DID NOT RESTART. CHANGED IV PAIN MEDS TO ORAL. WILL MONITOR PAIN LEVEL.
[2018-06-24] MEDS ORDERED: NORCO-10 PO (11:12)
[2018-06-24] MEDS ORDERED: PROTONIX40 MG PO (11:12)
[2018-06-24] MEDS ORDERED: BACLOFEN10 MG PO (11:13)
[2018-06-24 12:11] VITALS: BP 132/63
--- NOTE | 2018-06-24 12:22 | MORECARE ---
CASE MANAGEMENT DISCHARGE SUMMARY PATIENT: TAMARA JOHNSON UNIT: [id number] ADM DATE: 06/19/18 AGE: 53 : 67 SEX: M ROOM/BED: D.2202 AUTHOR: AMRITA WOODSON PHYSICIAN: REFERRING PHYSICIAN: EZEQUIEL CASTRO MD DATE OF SERVICE: 06/24/18 Discharge Plan Patient Name: TAMARA JOHNSON [facility] [facility] 1965 Planned Disposition: Inpatient Rehab Anticipated Discharge Date: Discharge Date: Expected LOS: Initial Reviewer: [email or web address] Initial Review Date: 06/19/2018 Generated: 06/24/18 1:22 pm Last DP export: 06/21/18 2:38 p Patient Name: TAMARA JOHNSON Page [phone] at 1222 All edits/amendments must be made on the electronic document DICTATION DATE: 06/24/18 1221 OIL REFINER: MAHIN 06/24/18 1221 RPT#: [id number] DC DATE: STATUS: ADM IN [address] [place] [address] END OF REPORT
--- NOTE | 2018-06-24 12:29 | MORECARE ---
CASE MANAGEMENT DISCHARGE SUMMARY PATIENT: TAMARA JOHNSON UNIT: [id number] ADM DATE: 06/19/18 AGE: 53 : 67 SEX: M ROOM/BED: D.2202 AUTHOR: AMRITA WOODSON PHYSICIAN: REFERRING PHYSICIAN: EZEQUIEL CASTRO MD DATE OF SERVICE: 06/24/18 Discharge Plan Patient Name: TAMARA JOHNSON [facility] [facility] 1965 Planned Disposition: Inpatient Rehab Anticipated Discharge Date: Discharge Date: Expected LOS: Initial Reviewer: [email or web address] Initial Review Date: 06/19/2018 Generated: 06/24/18 1:29 pm DCPIA - Discharge Planning Initial Assessment Updated by [id number]: Yoanna Vega on 06/24/18 12:23 pm * Is the patient Alert and Oriented? Yes * PCP KANCHAN * Pharmacy [facility] * Preadmission Environment Homeless * ADLs Independent * Equipment None * List name and contact numbers for known caregivers / representatives who currently or will assist patient after discharge: NONE * Verbal permission to speak to the caregivers and representatives has been obtained from the patient. N/A * Community resources currently utilized None * Additional services required to return to the preadmission environment? Yes * Can the patient safely return to the preadmission environment? Yes * Has this patient been hospitalized within the prior 30 days at any hospital? No Last DP export: 06/24/18 11:22 a Patient Name: TAMARA JOHNSON Page [phone] at 1229 All edits/amendments must be made on the electronic document DICTATION DATE: 06/24/18 1229 PRISM INSPECTOR: MAHIN 06/24/18 1229 RPT#: [id number] DC DATE: STATUS: ADM IN [facility] [address] [place] [address] END OF REPORT
--- NOTE | 2018-06-24 12:37 | MORECARE ---
CASE MANAGEMENT DISCHARGE SUMMARY PATIENT: TAMARA JOHNSON UNIT: [id number] ADM DATE: 06/19/18 AGE: 53 : 67 SEX: M ROOM/BED: D.2202 AUTHOR: AMRITA WOODSON PHYSICIAN: REFERRING PHYSICIAN: EZEQUIEL CASTRO MD DATE OF SERVICE: 06/24/18 Discharge Plan Patient Name: TAMARA JOHNSON Facility: [facility]:[place] : 1965 Planned Disposition: Inpatient Rehab Anticipated Discharge Date: Discharge Date: Expected LOS: Initial Reviewer: [email or web address] Initial Review Date: 06/19/2018 Generated: 06/24/18 1:37 pm Comments DCP- Discharge Planning Updated by [id number]: Yoanna Vega on 06/24/18 11:[address] Patient Name: TAMARA JOHNSON Admission Status: ER Accout number: [id number] Admission Date: 06-19-2018 : 1965 Admission Diagnosis: Attending: EZEQUIEL CASTRO Current LOS: 5 Anticipated DC Date: Planned Disposition: Inpatient Rehab Primary Insurance: MEDICARE A & B Discharge Planning Comments: CM met with patient to assess discharge planning needs. Patient stated that he is homeless, but his discharge plan is to go to inpatient rehab. He denies any family or friends. He states he does not use any medical equipment at home. CM will continue to follow and assist as needed. imm served and explained Plate Grainer: Yoanna Vega DCPIA - Discharge Planning Initial Assessment Updated by [email or web address]: Yoanna Vega on 06/24/18 12:23 pm * Is the patient Alert and Oriented? Yes * PCP KANCHAN * Pharmacy [facility] * Preadmission Environment Homeless * ADLs Independent * Equipment None * List name and contact numbers for known caregivers / representatives who currently or will assist patient after discharge: NONE * Verbal permission to speak to the caregivers and representatives has been obtained from the patient. N/A * Community resources currently utilized None * Additional services required to return to the preadmission environment? Yes * Can the patient safely return to the preadmission environment? Yes * Has this patient been hospitalized within the prior 30 days at any hospital? No Coverage Notice Reviewer: [email or web address] Baylee Vega Notice Issued Date-Time: 06/24/2018 12:10 Notice Type: IM Discharge Notice Notice Delivered To: Patient Relationship to Patient: Installer Helper Name: Delivery Method: HAND - Hand Delivered Mary Days: Prior Verbal Notification: Recipient Understood Notice: Yes Recipient Signature: Yes Med Rec Note Co-signed by Attending: Coverage Notice Comment: Last DP export: 06/24/18 11:29 a Patient Name: TAMARA JOHNSON Page [phone] at 1237 All edits/amendments must be made on the electronic document DICTATION DATE: 06/24/18 1237 CLAM DREDGER: MAHIN 06/24/18 1237 RPT#: [id number] DC DATE: STATUS: ADM IN [facility] [address] [place] [address] END OF REPORT
--- NOTE | 2018-06-24 14:46 | NUR ---
OT NOTE: PT PERFORMED BED MOB WITH MIN ASSIST; TRANSFERRED TO CHAIR WITH MIN ASSIST; CHAIR TO BED IWTH MIN ASSIST. SET UP WITH FEEDING; IN ROOM AMBULATION WITH WALKER AND MIN ASSIST. GROSS MOTOR ACT WITH L HAND. SKY MUKHERJEE, OTR/L
[2018-06-24 15:39] VITALS: BP 126/66
--- NOTE | 2018-06-24 16:25 | NUR ---
OT NOTE: PT COMPLETED RUE STRENGTHENING AND LUE COORDINATION AXS. PT COMPLETED SIT TO STAND WITH CGA/MIN A. PT COMPLETED GROOMING TASKS IN CHAIR WITH LUE TO INCREASE COORDINATION AND AROM. THANK YOU, MIGDALIA RILEY
--- NOTE | 2018-06-26 12:28 | MORECARE ---
CASE MANAGEMENT DISCHARGE SUMMARY PATIENT: TAMARA JOHNSON UNIT: [id number] ADM DATE: 06/19/18 AGE: 53 : 67 SEX: M ROOM/BED: D.2202 AUTHOR: AMRITA WOODSON PHYSICIAN: REFERRING PHYSICIAN: EZEQUIEL CASTRO MD DATE OF SERVICE: 06/26/18 Discharge Plan Patient Name: TAMARA JOHNSON Facility: [facility]:[place] : 1965 Planned Disposition: Inpatient Rehab Anticipated Discharge Date: Discharge Date: 06/24/2018 Expected LOS: 0 Initial Reviewer: [email or web address] Initial Review Date: 06/19/2018 Generated: 06/26/18 1:28 pm Comments DCP- Discharge Planning Updated by [email or web address]: Yoanna Vega on 06/24/18 11:[address] Patient Name: TAMARA JOHNSON Admission Status: ER Accout number: [id number] Admission Date: 06-19-2018 : 1965 Admission Diagnosis: Attending: EZEQUIEL CASTRO Current LOS: 5 Anticipated DC Date: Planned Disposition: Inpatient Rehab Primary Insurance: MEDICARE A & B Discharge Planning Comments: CM met with patient to assess discharge planning needs. Patient stated that he is homeless, but his discharge plan is to go to inpatient rehab. He denies any family or friends. He states he does not use any medical equipment at home. CM will continue to follow and assist as needed. imm served and explained Athletic Director: Yoanna Vega DCPIA - Discharge Planning Initial Assessment Updated by [email or web address]: Yoanna Vega on 06/24/18 12:23 pm * Is the patient Alert and Oriented? Yes * PCP KANCHAN * Pharmacy [facility] * Preadmission Environment Homeless * ADLs Independent * Equipment None * List name and contact numbers for known caregivers / representatives who currently or will assist patient after discharge: NONE * Verbal permission to speak to the caregivers and representatives has been obtained from the patient. N/A * Community resources currently utilized None * Additional services required to return to the preadmission environment? Yes * Can the patient safely return to the preadmission environment? Yes * Has this patient been hospitalized within the prior 30 days at any hospital? 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
== END 2018-06-24 17:08 | DRG 64 ==
LOC: D.ER 19:33 → D.MS 21:18 → D.EDHOLD 21:18 → D.MS 22:33
PROVIDERS: Emergency Medicine; ADMIT Internal Medicine Nephrology; ATTEND Internal Medicine Nephrology
DX: I63.231 Cerebral infarction due to unspecified occlusion or stenosis of right carotid arteries (principal); I61.9 Nontraumatic intracerebral hemorrhage, unspecified; G81.04 Flaccid hemiplegia affecting left nondominant side; R47.1 Dysarthria and anarthria; R29.810 Facial weakness; I25.10 Atherosclerotic heart disease of native coronary artery without angina pectoris; R47.81 Slurred speech; R40.2363 Coma scale, best motor response, obeys commands, at hospital admission; R40.2143 Coma scale, eyes open, spontaneous, at hospital admission; R40.2253 Coma scale, best verbal response, oriented, at hospital admission; I10 Essential (primary) hypertension; E78.5 Hyperlipidemia, unspecified; F15.10 Other stimulant abuse, uncomplicated

== ENCOUNTER 2018-06-24 18:36 | Inpatient (IN) | payer MEDICARE ==
[~2018-06-24] VITALS: Ht 182.9 cm; Wt 113.4 kg
--- NOTE | ~2018-06-24 | RHP ---
PATIENT: TAMARA JOHNSON MEDICAL RECORD: [id number] ACCOUNT: [id number] LOCATION:[facility] [place] : 67 ADMISSION DATE: 06/24/18 REHABILITATION HISTORY AND PHYSICAL EXAMINATION POST ADMISSION PHYSICIAN EXAMINATION DATE OF ADMISSION: 06/24/2018 ADMITTING DIAGNOSES: Cerebrovascular accident secondary to hemorrhage in the right middle cerebral artery distribution with left-sided hemiparesis. HISTORY OF PRESENT ILLNESS: The patient is admitted to inpatient rehab with a hemorrhagic CVA with a right middle cerebral artery distribution affecting his left side. A 53-year-old gentleman that presented to the ED with left-sided hemiparesis for 24 hours. He was homeless. He had a past medical history of CVA, hypertension, coronary artery disease, tobacco use and hyperlipidemia. Speech was slurred. He had an occipital headache and increased worsening of his left hemiparesis, has difficulty ambulating for 2 days prior to this episode secondary to his hemiparesis. His MRI showed small acute infarcts in the right middle cerebral artery distribution and some remote infarcts in the right frontotemporal lobes. 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 He had a neurosurgical consult and was followed and had a cardiovascular surgeon consult also. He was not a surgical candidate at this time, been receiving OT, PT and speech therapy during his stay. He is on telemetry. He has got pain management problems. He is receiving PT, OT and speech therapy and slowly progressing. He is at high risk for falls, debility, deconditioning secondary to his self-care deficits and left-sided weakness and he is homeless. These are all barriers to discharge at this time. He is moderately independent with mobility and uses a single point cane and was independent with his ADLs, currently set up for max assist with ADLs, mod to max assist for mobility. He would like to return back to his prior living situation, hopefully, at his prior level of functioning if possible. COMORBIDITIES: In this patient include hypertension, coronary artery disease, history of CA, hyperlipidemia, substance abuse, ankylosing spondylitis, depression, oropharyngeal dysphagia, dysarthria speech, history of CVA. PAST MEDICAL HISTORY: Significant for CVA, hypertension, coronary artery disease, ankylosing spondylitis and depression. PAST SURGICAL HISTORY: Includes stent placement. ALLERGIES: No known drug allergies. CURRENT MEDICATIONS: Include Pravachol 20 mg daily, Protonix 40 mg daily, metoprolol 25 mg daily, aspirin 81 mg daily. He is on electrolyte protocol at this time. He is on Corona 10/325 one tab every 4 hours as needed, would like this changed to Tylenol with codeine, Neurontin 600 mg t.i.d. and Baclofen 5 mg every 8 hours p.r.n. HABITS: He does have a history of tobacco and illicit drug use. FAMILY HISTORY: Noncontributory. HISTORY AND PHYSICAL [id number] TAMARA JOHNSON SOCIAL HISTORY: The patient hopes to regain his strength and go back to his prior living situation. REVIEW OF SYSTEMS: GENERAL: Does complain of weakness and fatigue, mainly weakness on one side. HEENT: Denies cold, cough, or congestion. CARDIOVASCULAR: Denies chest pain. PHYSICAL EXAMINATION: VITAL SIGNS: Stable, afebrile. GENERAL: An obese gentleman in no acute distress, alert upon exam. HEENT: Normocephalic and atraumatic. Mucosa moist. NECK: Supple. No lymphadenopathy. LUNGS: Clear at this time with no wheeze, rhonchi, or rales. HEART: Regular rate and rhythm. No murmurs, rubs or gallops. ABDOMEN: Soft, benign, nontender, nondistended. EXTREMITIES: Does have no clubbing, cyanosis or edema. NEUROLOGIC: He does have noted weakness, especially on the left. LABORATORY DATA: White count is 6.3, H&H of 13 and 39, and platelet count is 174. Sodium 142, potassium 4.0, BUN and creatinine of 17 and 0.8 and blood sugar is noted to be 97. ASSESSMENT: This 53-year-old gentleman admitted to the rehab with a working diagnosis of cerebrovascular accident involving the middle cerebral artery on the right with noted weakness on the left. The patient has potential to make improvement. We instituted the following multidisciplinary therapies including, but not limited to physical, occupational, respiratory, speech, nutritional services, prosthetics and orthotics. Given his complex medical conditions and risks for more complications, rehabilitation services cannot be provided at a low level of care such as skilled nurse facility. PLAN: 1. Admit to [facility] for intensive inpatient therapy to include the following disciplines; A. Physical therapy to improve gait, all transfer skills and bed mobility to a modified independent level. B. Occupational therapy to a modified independent level. C. Case management to assist with discharge planning and placement options. D. Nutrition to assist with nutritional needs. E. Rehabilitation nursing to assist in monitoring the patient's underlying medical condition and to assist with any type of bowel or bladder management. 2. The patient's current medication and medical care will be continued. 3. The patient will be placed on standard fall precautions. 4. The patient's estimated length of stay is approximately 7-10 days. 5. We will discuss this patient during care team staff meeting this week. TRANSINT:[id number] Voice Confirmation ID: [id number] DOCUMENT ID: [id number] 06/27/2018 Edited for zafar CARDONA. DULCE notes whether there has been none or any medical/functional change since admission: - No change since preadmission screen. HISTORY AND PHYSICAL [id number] TAMARA JOHNSON attests patient continues to be appropriate for IRF: - Continues to be appropriate. NICKY MOLINA MD CC: [id number] DICTATION DATE: 06/25/18 1116 PEDIATRIC DIETICIAN: 06/25/18 1152 ADM IN [facility] [address] [id number]
[~2018-06-24 18:36] MED LIST changes: +BACLOFEN10 MG PO; +NORCO-10 PO; +PROTONIX40 MG PO
--- NOTE | 2018-06-24 19:10 | NUR ---
PT IS RESTING IN BED WITH EYES OPEN. ALERT AND ORIENTED X 3. DENIES ACUTE DISCOMFORT AT THIS TIME. PT ORIENTED X UNIT RULES AND PROCEDURES WITH VERBAL UNDERSTANDING VOICED. PT STATES HE CANNOT WALK WITHOUT HIS CANE WHICH HE BROKE. PT CAUTIONED TO CALL NURSE FOR ASSISTANCE TO BATHROOM TONIGHT IN WC. HE STATED HE WOULD. SR'S ARE UP X 3 IN BED. CALL LIGHT AND BEDSIDE TABLE ARE WITHIN EASY REACH.
[2018-06-24 19:17] VITALS: BP 152/70
[2018-06-24 21:07] VITALS: BP 52/70; BMI 34.0
--- NOTE | 2018-06-25 | NUR ---
PT RESTING WITH EYES CLOSED, RESP QUIET, NO DISTRESS NOTED, LEFT UNDISTURBED AT THIS TIME, BED IN LOW POSITION, SIDE RAILS X 2, CALL LIGHT IN REACH
--- NOTE | 2018-06-25 01:07 | NUR ---
RESTING IN BED WITH RESPIRATIONS UNLABORED. NO DISTRESS NOTED. CALL LIGHT IN REACH.
--- NOTE | 2018-06-25 04:29 | NUR ---
RESTING IN BED WITH EYES CLOSED.
[2018-06-25 06:04] LABS: BASOPHILS 0.3 % (0-2); EOSINOPHILS 2.8 % (0-7); HEMATOCRIT 39.4 % (42.0-54.0); HEMOGLOBIN 13.4 g/dL (13.5-17.5); IMMATURE GRANULOCYTES 0.3 % (0-5); LYMPHOCYTES 35.8 % (15-50); MCH 30.2 pg (26.0-34.0); MCV 88.9 fL (80.0-100.0); MEAN PLATELET VOLUME 9.6 fL (7.4-10.4); MONOCYTES 9.1 % (2-11); NEUTROPHILS 51.7 % (40-80); PLATELET COUNT 174 10x3/uL (130-400); RBC 4.43 10x6/uL (4.20-6.10); RDW 12.9 % (11.5-14.5); WBC 6.3 10x3/uL (4.8-10.8)
[2018-06-25 06:49] LABS: CALC OSMOLALITY 284 mosm/kg (275-300); CALCIUM 8.4 mg/dL (8.5-10.1); CARBON DIOXIDE 28.2 mmol/L (21.0-32.0); CHLORIDE - SERUM 107 mmol/L (98-107); CREATININE - SERUM 0.8 mg/dL (0.6-1.3); GLUCOSE 97 mg/dL (74-106); SODIUM 142 mmol/L (136-145); UREA NITROGEN 17 mg/dL (7-18); eGFR NON AFRICAN AMERICAN > 90 mL/min (90-120)
--- NOTE | 2018-06-25 08:00 | NUR ---
SHIFT ASSMT COMPLETED.BREAKFAST GIVEN.PT BECOMES IRATE OVER HONEY THICKENED LIQS AND CURSES AND THROWS EMPTY PLASTIC CONTAINER.SECURITY CALLED AND PERSONEL TALKS AND EXPLAINS WHY HE IS ORDERED THICKENED LIQS.
[2018-06-25 08:14] VITALS: BP 172/86
--- NOTE | 2018-06-25 10:00 | NUR ---
NURSING MANAGEMENT TALKS WITH PATIENT AND SEEMS TO CALM DOWN AND IS MORE COOPERATIVE WITH DIET.
[2018-06-25 10:18] VITALS: Ht 182.9 cm; Wt 113.4 kg
--- NOTE | 2018-06-25 12:00 | NUR ---
ST SEE'S PT AND ADVANCES TO THIN LIQ DIET.
--- NOTE | 2018-06-25 12:09 | NUR ---
PATIENT ADMITTED TO REHAB FROM ACUTE FLOOR. PATIENT HAS NO PCP . HE IS A HOMELESS MAN AND AT DISCHARGE WOULD LIKE TO RETURN TO HIS LIVING ARRANGEMENTS. WILL CONTINUE TO FOLLOW WITH PATIENT. AT THIS TIME HE WISHES THAT I NOT DISCUSS WITH HIM ABOUT ASSITING HIM IN FINDING A HOME.
--- NOTE | 2018-06-25 16:00 | NUR ---
RESTING QUIETLY IN BED.
[2018-06-25 19:00] VITALS: BP 138/64
--- NOTE | 2018-06-25 20:50 | NUR ---
GREETED PATIENT AND INTRODUCED MYSELF HIS NURSE. PATIENT IS LAYING IN BED AND DENIES ANY NEEDS AT THIS TIME. CALL LIGHT IN REACH.
--- NOTE | 2018-06-26 02:46 | NUR ---
PATIENT RESTING QUIETLY WITH EYES CLOSED LAYING ON LEFT SIDE. HOB AT 30 DEGREES. RESPIRATIONS EVEN. NO S/S OF DISTRESS.CALL LIGHT IN REACH.
[2018-06-26 08:00] VITALS: BP 158/85
--- NOTE | 2018-06-26 16:35 | NUR ---
CARE TEAM MEETING: PATIENT IS NEW TO UNIT AND WILL BE RA AT NEXT MEETING. WILL CONTINUE TO FOLLOW WITH PATIENT.
[2018-06-26 19:00] VITALS: BP 172/87
--- NOTE | 2018-06-26 20:30 | NUR ---
GREETED PATIENT AND INTRODUCED MYSELF. PATIENT IS SITTING UP IN BED EATING A SANDWICH. DENIES ANY FURTHER NEEDS AT THIS TIME. CALL LIGHT IN REACH.
--- NOTE | 2018-06-27 01:07 | NUR ---
PATIENT LAYING IN BED RESTING QUIETLY. HOB AT 30 DEGREES. RESPIRATIONS EVEN. NO S/S OF DISTRESS. SR UP X 2. BED IN LOWEST POSITION. CALL LIGHT IN REACH.
--- NOTE | 2018-06-27 02:51 | NUR ---
PATIENT AWAKE AND REQUESTING PRN PAIN MEDICATION FOR HEADACHE. CALL LIGHT IN REACH.
[2018-06-27 08:00] VITALS: BP 123/59
--- NOTE | 2018-06-27 10:41 | NUR ---
SITTING IN WC IN HIS ROOM. PAIN MEDS GIVEN REQUESTED AND ORDERED. C/O PARK AND LOW BACK PAIN. USES CANE FOR AMBULATION ASST. CALL LIGHT IN REACH
--- NOTE | 2018-06-27 10:56 | NUR ---
SPOKE WITH PATIENT AND AT DISCHARGE HE WOULD LIKE A REFERRAL TO [facility].
--- NOTE | 2018-06-27 12:34 | NUR ---
SITTING UP EATING LUNCH IN ROOM. PAIN MEDS EFFECTIVE FOR HIS PAIN. SITS IN WC OFTEN AND USES CANE FOR AMBULATION ASST. CALL LIGHT IN REACH
[2018-06-27 19:00] VITALS: BP 110/78
--- NOTE | 2018-06-27 20:01 | NUR ---
GREETED PATIENT AND INTRODUCED MYSELF. PATIENT IS LAYING IN BED WATCHING TV. STATES PAIN IS 6/10. CALL LIGHT IN REACH.
--- NOTE | 2018-06-27 22:23 | NUR ---
PATIENT UP AT NURSES STATION BEING DEMANDING AND RUDE TO NURSING AND STAFF. SAID THAT HE HAD ASKED FOR TOWELS OVER AN HOUR AGO AND THAT WE HAD IGNORED HIM. THERE WERE NO TOWELS AVAILABLE ON OUR UNIT AND RADIOLOGICAL TECHNICIAN HAD TO GO TO OTHER UNITS TO LOOK FOR TOWELS. PATIENT REQUESTED HIS TURKEY SANDWICH THAT HE HAD IN THE [place]ID[place]. I PROMPTLY CARRIED THE SANDWICH BACK TO HIS ROOM FOR HIM AND HE FOLLOWED ME BACK AND THREW PAPERS ON THE FLOOR AND WAS TALKING VERY UGLY TO NURSING AND RADIOLOGICAL TECHNICIAN STAFF. AFTER RADIOLOGICAL TECHNICIAN GAVE HIM TOWELS AND WASH CLOTHS HE CONTINUED TO SCREAM AT US.
--- NOTE | 2018-06-27 23:00 | NUR ---
WENT NEXT DOOR TO SHELTER AND BORROWED SOME MORE TOWELS TO GIVE TO PATIENT TO TAKE A SHOWER. STILL UNHAPPY AND ARGUMENTATIVE.
--- NOTE | 2018-06-27 23:15 | NUR ---
PATIENT IN SHOWER. COMPLETE LINEN CHANGE.
--- NOTE | 2018-06-28 01:16 | NUR ---
PATIENT RESTING QUIETLY WITH EYES CLOSED. HOB AT 30 DEGREES. RESPIRATIONS EVEN. NO S/S OF DISTRESS. CALL LIGHT IN REACH.
[2018-06-28 07:43] LABS: BASOPHILS 0.2 % (0-2); EOSINOPHILS 2.1 % (0-7); HEMATOCRIT 38.5 % (42.0-54.0); HEMOGLOBIN 13.1 g/dL (13.5-17.5); IMMATURE GRANULOCYTES 0.3 % (0-5); LYMPHOCYTES 26.6 % (15-50); MCH 30.4 pg (26.0-34.0); MCV 89.3 fL (80.0-100.0); MEAN PLATELET VOLUME 9.9 fL (7.4-10.4); MONOCYTES 8.3 % (2-11); NEUTROPHILS 62.5 % (40-80); PLATELET COUNT 193 10x3/uL (130-400); RBC 4.31 10x6/uL (4.20-6.10); WBC 9.8 10x3/uL (4.8-10.8)
[2018-06-28 07:50] LABS: CALC OSMOLALITY 284 mosm/kg (275-300); CARBON DIOXIDE 31.2 mmol/L (21.0-32.0); CHLORIDE - SERUM 105 mmol/L (98-107); CREATININE - SERUM 0.8 mg/dL (0.6-1.3); GLUCOSE 102 mg/dL (74-106); POTASSIUM - SERUM 4.5 mmol/L (3.5-5.1); SODIUM 142 mmol/L (136-145); UREA NITROGEN 18 mg/dL (7-18); eGFR NON AFRICAN AMERICAN > 90 mL/min (90-120)
[2018-06-28 08:02] VITALS: BP 125/65
--- NOTE | 2018-06-28 08:31 | NUR ---
LAYING IN BED WITH EYES CLOSED. RESP EFFORT NON LABORED. AROUSES EASILY WITH VERBAL STEMULI. SITS UP FOR BREAKFAST. CALL LIGHT IN REACH
--- NOTE | 2018-06-28 14:16 | NUR ---
Nutrition Follow Up: Chart reviewed Diet: Regular [facility] Soft PO Intake: 92% meal avg BM: 06/26/18 Meds and labs noted Rec continue regular diet with SAFETY PROFESSIONAL recs for consistencies. RD following.
--- NOTE | 2018-06-28 16:01 | NUR ---
RESTING QUIETLY IN BED. EYES CLOSED. CALL LIGHT IN REACH
--- NOTE | 2018-06-28 19:00 | NUR ---
PT RESTING IN RECLINER IN HIS ROOM WATCHING TV. ALERT AND ORIENTED X 3. PT STATED, I THINK YOUR DIETARY IS TRYING TO STARVE ME. WHERE IS MY DINNER AT. IN INFORMED PT I WOULD CHECK ON IT. I CAME TO THE NURSES STATION AND SPOKE TO LINDSAY, THE DAY RAMONA. SHE STATED HE DID GET HIS TRAY, AND HAD 2 EXTRA SANDWICH TRAYS IN THE REFRIGERATOR. I WENT BACK TO PTS ROOM AND TOLD HIM, AND HE BEGAN SCREAMING, "NUMEROUS VILE PHRASES WERE USED, AND THEN PT STORMED INTO THE BATHROOM AND SLAMMED THE DOOR SHUT. I CAME TO THE NURSES STATION AND CALLED RENUKA THE PUNCHING MACHINE OPERATOR AND TOLD HER, AND SHE STATED SHE WOULD GO AND FIND HIM SOMETHING TO EAT. WHILE TALKING TO HER, MR JOHNSON APPROACHED THE DESK DEMANDING TO SPEAK TO THE NURSING WORK ADJUSTMENT INSTRUCTOR. I INFORMED HER OF THIS. SHE WAS THEN IN THE KITCHEN SPEAKING TO THEM. THE KITCHEN STAFF STATED THAT THEY HAD HIM MARKED OFF GETTING HIS TRAY.
--- NOTE | 2018-06-28 19:35 | NUR ---
HOSPITAL ADMINISTRATIVE ASSISTANT HERE WITH PTS SUPPER TRAY.
[2018-06-28 20:06] VITALS: BP 188/101
--- NOTE | 2018-06-28 21:49 | NUR ---
PT RESTING IN BED WITH EYES OPEN. NO NEED VOICED. PT VERY APOLOGETIC ABOUT HIS ACTIONS EARLIER TONIGHT.
--- NOTE | 2018-06-29 00:01 | NUR ---
PT RESTING IN BED WITH EYES CLOSED.
--- NOTE | 2018-06-29 01:30 | NUR ---
RESTING IN BED WITH RESPIRATIONS UNLABORED. NO DISTRESS NOTED.
--- NOTE | 2018-06-29 05:13 | NUR ---
PT RESTING IN BED WITH EYES CLOSED. NO DISTRESS NOTED.
[2018-06-29 08:05] VITALS: BP 128/54
--- NOTE | 2018-06-29 08:14 | NUR ---
SITTING UP ON SIDE OF BED EATING BREAKFAST. USES CANE FOR AMBULATION ASST. LEFT SIDE WEAKNESS NOTED TO UPPER AND LOWER EXTREMITIES. CALL LIGHT IN REACH
--- NOTE | 2018-06-29 15:44 | NUR ---
RESTING QUIETLY IN BED, LAYING ON SIDE. EYES CLOSED. CALL LIGHT IN REACH
--- NOTE | 2018-06-29 17:59 | NUR ---
SITTING UP IN WC IN ROOM WATCHING TV. DENIES NEEDS OR C/O. USES HIS PERSONAL CANE FOR AMBULATION ASST. CALL LIGHT IN REACH
--- NOTE | 2018-06-29 19:56 | NUR ---
THE PATIENT WAS LYING IN BED AND WATCHING TELEVISION WHEN STAFF ENTERED HIS ROOM. BED IS IN THE LO WPOSITION WITH SIDERAILS X2 AND CALL LIGHT WITHIN REACH. THE PATIENT DEMONSTRATES APPROPRIATE USE OF A CALL LIGHT. THE PATIENT APPEARS COMFORTABLE WITH NO QUESTIONS OR CONCERNS AT THIS TIME.
[2018-06-29 20:00] VITALS: BP 127/68
--- NOTE | 2018-06-30 02:36 | NUR ---
THE PATIENT APPEARS TO BE SLEEPING COMFORTABLY. BED IS IN THE LOW POSITION WITH SIDERAILS X2 AND CALL LIGHT WITHIN REACH.
--- NOTE | 2018-06-30 10:34 | NUR ---
REBECA ALERT AND ORIENTED THIS MORNING. ATE 200% OF BREAKFAST. MEDICATED WITH PRN TYLENOLW/ CODIENE FOR HEADACHE AT 10:00. SLEEPING AT THIS TIME. CALL LIGHT WITHIN REACH. WILL CONTINUE TO MONITOR.
[2018-06-30 12:20] VITALS: BP 148/80
--- NOTE | 2018-06-30 14:01 | NUR ---
PATIENT SLEEPING AT THIS TIME.
--- NOTE | 2018-06-30 16:26 | NUR ---
REQUESTED PRN BACLOFEN. THIS MEDICATION WAS GIVEN TO PER REQUEST.
--- NOTE | 2018-06-30 19:55 | NUR ---
PT IS RESTING IN RECLINER WITH EYES OPEN. ALERT AND ORIENTED X 3. DENIES ANY NEEDS AT THIS TIME. NO DISTRESS NOTED. CALL LIGHT AND BEDSIDE TABLE ARE WITHIN EASY REACH.
[2018-06-30 21:37] VITALS: BP 117/59
--- NOTE | 2018-06-30 22:47 | NUR ---
PT RESTING IN BED WITH EYES CLOSED.
--- NOTE | 2018-07-01 00:39 | NUR ---
RESTING IN BED WITH EYES CLOSED AND RESPIRATIONS UNLABORED. NO DISTRESS NOTED. CALL LIGHT IN REACH.
--- NOTE | 2018-07-01 06:25 | NUR ---
PT IS RESTING IN BED WITH EYES CLOSED.
[2018-07-01 07:04] LABS: BASOPHILS 0.2 % (0-2); EOSINOPHILS 3.2 % (0-7); HEMATOCRIT 37.1 % (42.0-54.0); HEMOGLOBIN 12.3 g/dL (13.5-17.5); IMMATURE GRANULOCYTES 0.6 % (0-5); LYMPHOCYTES 25.4 % (15-50); MCH 30.1 pg (26.0-34.0); MCHC 33.2 g/dL (31.0-37.0); MCV 90.9 fL (80.0-100.0); MEAN PLATELET VOLUME 10.1 fL (7.4-10.4); MONOCYTES 8.6 % (2-11); PLATELET COUNT 222 10x3/uL (130-400); RBC 4.08 10x6/uL (4.20-6.10); RDW 13.1 % (11.5-14.5); WBC 8.8 10x3/uL (4.8-10.8)
[2018-07-01 07:06] LABS: CALC OSMOLALITY 284 mosm/kg (275-300); CALCIUM 8.9 mg/dL (8.5-10.1); CARBON DIOXIDE 29.6 mmol/L (21.0-32.0); CHLORIDE - SERUM 105 mmol/L (98-107); CREATININE - SERUM 0.9 mg/dL (0.6-1.3); GLUCOSE 95 mg/dL (74-106); POTASSIUM - SERUM 4.5 mmol/L (3.5-5.1); SODIUM 142 mmol/L (136-145); UREA NITROGEN 17 mg/dL (7-18); eGFR NON AFRICAN AMERICAN > 90 mL/min (90-120)
--- NOTE | 2018-07-01 08:00 | NUR ---
PATIENT AWAKE AND ALERT THIS MORNING. SITTING UP IN RECLINER CHAIR FOR BREAKFAST. ATE 100% OF BREAKFAST. UP AND ABOUT AD MARIELLE WITH CANE. WILL CONTINUE TO MONITOR. CALL LIGHT WITHIN REACH.
[2018-07-01 08:06] VITALS: BP 154/73
--- NOTE | 2018-07-01 11:00 | NUR ---
PATIENT CAME DOWN AND ASKED TO HAVE HIS BLOOD PRESSURE TAKEN. STATE HE FELT "WEIRD" BP 218/102. CALL PLACE TO DR. MOLINA AND HE ORDERED 0.1MG CLONIDINE. MEDICATION WAS GIVEN.
--- NOTE | 2018-07-01 12:15 | NUR ---
BP RETAKEN AND IS 157/95. PATIENT STATES HIS HEAD STILL HURTS BUT HE FEELS BETTER. WILL CONTINUE TO MONITOR.
[2018-07-01 19:00] VITALS: BP 124/72; BP 129/65
--- NOTE | 2018-07-01 19:46 | NUR ---
PT IS RESTING IN BED WITH EYES CLOSED. NO ACUTE DISTRESS NOTED. CALL LIGHT AND BEDSIDE TABLE ARE WITHIN EASY REACH.
--- NOTE | 2018-07-01 21:20 | NUR ---
PT UP TO VOID INDEPENDENTLY. NO NEEDS VOICED AT THIS TIME.
--- NOTE | 2018-07-02 00:11 | NUR ---
PT WATCHING TV IN HIS ROOM. NO NEEDS VOICED.
--- NOTE | 2018-07-02 00:26 | NUR ---
UP AAD MARIELLE IN ROOM AND CAME TO NURSES STATION TO ASK FOR ICE. WALKING WITH CANE AND STEADY GAIT. NO ACUTE DISTRESS NOTED.
--- NOTE | 2018-07-02 03:00 | NUR ---
PT IS RESTING QUIETLY IN BED WITH EYES CLOSED. RESPS ARE EVEN AND UNLABORED. NO ACUTE DISTRESS NOTED.
--- NOTE | 2018-07-02 05:58 | NUR ---
PT RESTING IN BED WITH EYES CLOSED. AWOKE EASILY TO VERBAL STIMULI. TOLERATED AM MED WITHOUT DIFFICULTY. PT THEN UP TO BATHROOM AD MARIELLE.
[2018-07-02 08:00] VITALS: BP 122/58
[2018-07-02 19:01] VITALS: BP 134/59
--- NOTE | 2018-07-02 19:31 | NUR ---
PT UP IN BATHROOM, DRESSED, SELF SHOWERED, REQUESTING PRN PAIN MED AND MUSCLE RELAXER, TOLD PT I WOULD SEE WHEN IT WAS AVAILABLE, PT HAS ALARM WAIVER, MOVES ABOUT FREELY WITH CANE, FLUIDS AND CALL LIGHT WITHIN REACH
--- NOTE | 2018-07-03 03:53 | NUR ---
PT IN BED LOWEST POSITION, EYES CLOSED AROUSES EASILY TO VOICE, BREATHING EVEN AND UNLABORED, FLUIDS AND CALL LIGHT WITHIN REACH
[2018-07-03 07:45] VITALS: BP 166/76
--- NOTE | 2018-07-03 08:00 | NUR ---
SHIFT ASSMT COMPLETED.DENIES NEEDS.
--- NOTE | 2018-07-03 09:35 | NUR ---
Nutrition follow up: Mechanical soft diet with 100% intake of most meals Pt reports he is getting plenty to eat and has no nutritional requests or concerns at this time. Pt has no questions about nutrition Pt reports he has gained some weight and will be cutting back a little on food intake Pt is nutritionally stable RD following
--- NOTE | 2018-07-03 12:00 | NUR ---
SITTING UP IN CHAIR EATING LUNCH.
--- NOTE | 2018-07-03 13:54 | NUR ---
PATIENT IN REHAB ROOM. WORKING WITH OCCUPATIONAL THERAPIST. DENIES ANY PAIN/DISC AT THIS TIME
--- NOTE | 2018-07-03 15:47 | NUR ---
CARE TEAM MEETING: PATIENT PROGRESSING WELL IN THERAPY. TENATIVE DISCHARGE DATE IS 07/09/18. WILL CONTINUE TO FOLLOW WITH PATIENT. INFORMATION GIVEN TO PATIENT REGARDING SEVERAL ASSISTED LIVING FACILITES
--- NOTE | 2018-07-03 15:52 | NUR ---
PRN PAIN TYLENOL GIVEN PER PATIENT REQUEST
[2018-07-03 19:00] VITALS: BP 138/66
--- NOTE | 2018-07-03 22:45 | NUR ---
PT IN BED LOWEST POSITION, EYES OPEN, A&O, BREATHING EVEN AND UNLABORED, NO NEEDS NOTED, FLUIDS AND CALL LIGHT WITHIN REACH
--- NOTE | 2018-07-04 08:00 | NUR ---
SHIFT ASSMT COMPLETED
[2018-07-04 08:21] VITALS: BP 134/71
[2018-07-04 19:00] VITALS: BP 137/75
--- NOTE | 2018-07-04 19:50 | NUR ---
PT IN BED ON LEFT SIDE, LOWEST POSITION, EYES CLOSED, AROUSED EASILY TO VOICE, NO NEEDS NOTED, BREATHING EVEN AND UNLABORED, FLUIDS AND CALL LIGHT WITHIN REACH, PT HAS WAIVER SIGNED AND IN CHART, MOVES ABOUT UNIT AT LEISURE, WALKS FREQUENTLY WITH CANE, STEADY GAIT
[2018-07-05 08:00] VITALS: BP 115/76
--- NOTE | 2018-07-05 11:51 | NUR ---
REFERRAL HAS BEEN FAXED TO [facility] FOR POSSIBLE ADMISSION ON 07/09/18. WILL CONTINUE TO FOLLOW WITH PATIENT
--- NOTE | 2018-07-05 15:31 | NUR ---
SITTING ON SIDE OF BED IN HIS ROOM. JUST GAVE HIM PAIN MEDS HIS REQUEST. HE STILL C/O PAIN TO BACK AND LEG. CALL LIGHT IN REACH
[2018-07-05 19:00] VITALS: BP 143/83
--- NOTE | 2018-07-05 19:30 | NUR ---
PT IS RESTING IN BED WITH EYES CLOSED. AWOKE EASILY TO VERBAL STIMULI. ALERT AND ORIENTED X 3. DENIES ACUTE DISCOMFORT AT THIS TIME. NO NEEDS VOICED. SR'S ARE UP X 2 IN BED. CALL LIGHT AND BEDSIDE TABLE ARE WITHIN EASY REACH.
--- NOTE | 2018-07-05 22:54 | NUR ---
PT RESTING IN BED WITH EYES CLOSED.
--- NOTE | 2018-07-06 00:44 | NUR ---
PT VOICED COMPLAINT OF RIGHT LEG PAIN LEVEL OF 8. MEDICATED PER HIS REQUEST.
--- NOTE | 2018-07-06 01:24 | NUR ---
I have reviewed this patient and I concur with the Shift Assessment completed by the Licensed Practical Nurse today this shift.
--- NOTE | 2018-07-06 01:25 | NUR ---
I have reviewed this patient and I concur with the Shift Assessment completed by the Licensed Practical Nurse today this shift.
--- NOTE | 2018-07-06 06:06 | NUR ---
PT RESTING IN BED WITH EYES CLOSED. AWOKE EASILY TO VERBAL STIMULI. TOLERATED AM MED WITHOUT DIFFICULTY. NO FURTHER NEEDS VOICED.
[2018-07-06 08:04] VITALS: BP 142/83
--- NOTE | 2018-07-06 10:13 | NUR ---
RESTING QUIETLY IN BED. HAS BRACE ON LLE. USES QUAD CANE FOR AMBULATION ASST. CALL LIGHT IN REACH
--- NOTE | 2018-07-06 16:08 | NUR ---
WALKED TO DESK WITH QUAD CANE BY SELF TO GET ICE. DENIES NEEDS.
--- NOTE | 2018-07-06 19:10 | NUR ---
PTIS RESTING IN BED WITH EYES OPEN. ALERT AND ORIENTED X 3. DENIES ACUTE PAIN OR DISCOMFORT AT THIS TIME. NO NEEDS VOICED.
[2018-07-06 20:23] VITALS: BP 151/85
--- NOTE | 2018-07-06 21:38 | NUR ---
PT RESTING IN BED WITH EYES CLOSED.
--- NOTE | 2018-07-07 00:41 | NUR ---
PT RESTING IN BED WATCHING TV. NO ACUTE DISTRESS NOTED.
--- NOTE | 2018-07-07 01:00 | NUR ---
I have reviewed this patient and I concur with the Shift Assessment completed by the Licensed Practical Nurse today this shift.
--- NOTE | 2018-07-07 04:19 | NUR ---
PT RESTING IN BED WITH EYES CLOSED. RESPS ARE EVEN AND UNLABORED. NO ACUTE DISTRESS NOTED.
--- NOTE | 2018-07-07 06:04 | NUR ---
PT RESTING IN BED WITH EYES CLOSED. AWOKE TO VERBAL STIMULI. TOLERATED AM MED WITHOUT DICCICULTY.
[2018-07-07 07:33] VITALS: BP 115/67
--- NOTE | 2018-07-07 07:51 | NUR ---
RESTING QUIETLY ON LEFT SIDE IN BED. NO S/S DISTRESS. CALL LIGHT IN REACH
--- NOTE | 2018-07-07 11:02 | NUR ---
WALKED TO DESK USING CANE AND BRACE ON LEG TO GET NEWSPAPER. DENIES NEEDS.
--- NOTE | 2018-07-07 19:15 | NUR ---
PT IS RESTING IN BED WITH EYES OPEN. ALERT AND ORIENTED X 3. PT VOICED COMPLAINT OF RIGHT LEG PAIN LEVEL OF 9 AT THIS TIME. STATES: "I WILL NEED MY PAIN PILL AND BACLOFEN BEFORE VERY LONG." VSS. SR'S ARE UP X 2 IN BED. CALL LIGHT AND BEDSIDE TABLE ARE WITHIN EASY REACH.
[2018-07-07 19:25] VITALS: BP 135/69
--- NOTE | 2018-07-07 21:30 | NUR ---
PATIENT RESTING IN BED. NO COMPLAINTS VOICED AT THIS TIME. WILL CONTINUE TO MONITOR. CALL LIGHT WITHIN REACH.
--- NOTE | 2018-07-08 01:24 | NUR ---
RESTING IN BED WITH EYES CLOSED.
--- NOTE | 2018-07-08 04:54 | NUR ---
PT IS RESTING QUIETLY IN BED WITH EYES CLOSED. RESPS ARE EVEN AND UNLABORED. NO ACUTE DISTRESS NOTED.
[2018-07-08 08:00] VITALS: BP 138/80
--- NOTE | 2018-07-08 08:00 | NUR ---
PT RESTING IN BED WITH EYES OPEN CALL LIGHT IN REACH NO PROBLEMS WILL MONITER
--- NOTE | 2018-07-08 15:59 | NUR ---
PT RESTING IN BED WITH EYES OPEN CALL LIGHT IN REACH NO PROBLEMS WILL MONITER
--- NOTE | 2018-07-08 16:30 | NUR ---
I have reviewed this patient and I concur with the Shift Assessment completed by the Licensed Practical Nurse today this shift.
[2018-07-08 19:00] VITALS: BP 153/74
--- NOTE | 2018-07-08 20:00 | NUR ---
PT LYING IN THERAPY ROOM ON TABLE. DENIES NEEDS OR PAIN AT THIS TIME. RESP EVEN AND UNLABORED. BED ALARM WAIVER ON CHART. GOING HOME TOMORROW. USES CANE TO AMBULATE. WCTM
--- NOTE | 2018-07-08 22:05 | NUR ---
PT IN ROOM LYING IN BED. CALL LIGHT IN REACH. PT CAME TO NURSES STATION ASKING FOR PAIN PILL AND BACLOFEN. MEDS GIVEN PER APR. WCTM
--- NOTE | 2018-07-09 02:16 | NUR ---
RESTING IN BED WITH EYES CLOSED AND RESPIRATIONS UNALBORED. NO DISTRESS NOTED. CALL LIGHT IN REACH.
--- NOTE | 2018-07-09 03:00 | NUR ---
PT RESTING QUIETLY. CALL LIGHT IN REACH. NO SIGNS OF DISTRESS OR PAIN. RESP EVEN AND UNLABORED. WCTM
--- NOTE | 2018-07-09 07:28 | NUR ---
RESTING WITH EYES CLOSED. NO C/O PAIN AT THIS TIME.
--- NOTE | 2018-07-09 07:38 | NUR ---
PT RESTING IN BED WITH EYES OPEN CALL LIGHT IN REACH NO PROBLEMS WILL MONITER
[2018-07-09 08:00] VITALS: BP 121/67
--- NOTE | 2018-07-09 09:56 | NUR ---
PATIENT DISCHARGING TO [facility] AND WILL TRANSPORT THERE AT 1:30 VIA FACILITY [facility]AN. NO HOME HEALTH OR DME NEEDED AT THIS TIME. DR. NICOLAS 07/25/18 @ 1:45. PATIENT CHOICE FORM AND IMFM FORMS SIGNED, COPY GIVEN TO PATIENT AND FILED IN CHART. DISCHARGE INSTRUCTIONS WITH [facility] FAXED TO SNF AND REVIEWED WITH PATIENT.
--- NOTE | 2018-07-09 12:23 | NUR ---
I have reviewed this patient and I concur with the Shift Assessment completed by the Licensed Practical Nurse today this shift.
--- NOTE | 2018-07-09 13:30 | NUR ---
PT DISCHARGED TO [facility] VIA WHEELCHAIR WITH BLANKET MAKER REPORT CALLED DISCHARGED SUMMARY AND MEDS SENT WITH BLANKET MAKER
== END 2018-07-09 14:28 | DRG 57 ==
LOC: D.REHAB 18:36
PROVIDERS: ADMIT Emergency Medicine; ATTEND Emergency Medicine
DX: I69.354 Hemiplegia and hemiparesis following cerebral infarction affecting left non-dominant side (principal); I25.10 Atherosclerotic heart disease of native coronary artery without angina pectoris; I10 Essential (primary) hypertension; E78.5 Hyperlipidemia, unspecified; R13.12 Dysphagia, oropharyngeal phase; F32.9 Major depressive disorder, single episode, unspecified; Z59.0 Homelessness; R47.1 Dysarthria and anarthria; M45.9 Ankylosing spondylitis of unspecified sites in spine; F19.10 Other psychoactive substance abuse, uncomplicated; F15.10 Other stimulant abuse, uncomplicated; I65.21 Occlusion and stenosis of right carotid artery

== ENCOUNTER 2018-07-20 20:07 | Emergency (ER) | payer MEDICARE ==
[~2018-07-20] VITALS: Ht 182.9 cm; Wt 125.9 kg
[2018-07-20 20:30] VITALS: Ht 182.9 cm; Wt 125.9 kg
[2018-07-20 21:40] LABS: BASOPHILS 0.2 % (0-2); EOSINOPHILS 2.8 % (0-7); HEMOGLOBIN 13.4 g/dL (13.5-17.5); IMMATURE GRANULOCYTES 0.4 % (0-5); LYMPHOCYTES 27.9 % (15-50); MCH 30.2 pg (26.0-34.0); MCHC 34.4 g/dL (31.0-37.0); MEAN PLATELET VOLUME 9.3 fL (7.4-10.4); MONOCYTES 9.3 % (2-11); NEUTROPHILS 59.4 % (40-80); PLATELET COUNT 231 10x3/uL (130-400); RBC 4.43 10x6/uL (4.20-6.10); RDW 13.2 % (11.5-14.5); WBC 9.3 10x3/uL (4.8-10.8)
[2018-07-20 21:44] LABS: INR 0.98 (0.85-1.17); PROTIME 12.5 SECONDS (11.6-15.0)
[2018-07-20 21:51] LABS: ALBUMIN 3.4 g/dL (3.4-5.0); ALKALINE PHOSPHATASE 70 U/L (46-116); ALT (SGPT) 18 U/L (10-68); BILIRUBIN - TOTAL 0.24 mg/dL (0.2-1.3); CALC OSMOLALITY 282 mosm/kg (275-300); CALCIUM 8.9 mg/dL (8.5-10.1); CARBON DIOXIDE 26.6 mmol/L (21.0-32.0); CHLORIDE - SERUM 106 mmol/L (98-107); CREATININE - SERUM 0.7 mg/dL (0.6-1.3); GLUCOSE 113 mg/dL (74-106); POTASSIUM - SERUM 4.1 mmol/L (3.5-5.1); PROTEIN - SERUM 6.9 g/dL (6.4-8.2); SODIUM 141 mmol/L (136-145); UREA NITROGEN 14 mg/dL (7-18); eGFR NON AFRICAN AMERICAN > 90 mL/min (90-120)
[2018-07-20 22:02] LABS: CKMB 1.3 U/L (0.0-3.6); CREATINE KINASE 26 UL (21-232); MAGNESIUM - SERUM 1.9 mg/dL (1.8-2.4)
[2018-07-20 22:03] LABS: TROPONIN-I < 0.017 ng/mL (0.000-0.060)
[2018-07-21 01:15] VITALS: BP 106/53
== END 2018-07-21 01:15 | disposition other institution (70) ==
LOC: D.ER 20:07
PROVIDERS: Family Medicine
DX: I60.9 Nontraumatic subarachnoid hemorrhage, unspecified (principal); Z86.73 Personal history of transient ischemic attack (TIA), and cerebral infarction without residual deficits; R51 Headache

== ENCOUNTER 2018-12-12 17:54 | Emergency (ER) | payer MEDICARE ==
[~2018-12-12] VITALS: Ht 182.9 cm; Wt 131.5 kg
[2018-12-12 17:56] VITALS: Ht 182.9 cm; Wt 131.5 kg
[2018-12-12 18:39] LABS: BASOPHILS 0.3 % (0-2); EOSINOPHILS 1.4 % (0-7); HEMATOCRIT 38.3 % (42.0-54.0); IMMATURE GRANULOCYTES 0.1 % (0-5); LYMPHOCYTES 35.8 % (15-50); MCH 30.9 pg (26.0-34.0); MCHC 33.9 g/dL (31.0-37.0); MEAN PLATELET VOLUME 9.7 fL (7.4-10.4); MONOCYTES 10.1 % (2-11); NEUTROPHILS 52.3 % (40-80); PLATELET COUNT 220 10x3/uL (130-400); RBC 4.21 10x6/uL (4.20-6.10); RDW 12.9 % (11.5-14.5); WBC 6.9 10x3/uL (4.8-10.8)
[2018-12-12 18:48] LABS: CALC OSMOLALITY 282 mosm/kg (275-300); CARBON DIOXIDE 25.4 mmol/L (21.0-32.0); CHLORIDE - SERUM 108 mmol/L (98-107); CREATININE - SERUM 0.8 mg/dL (0.6-1.3); GLUCOSE 103 mg/dL (74-106); POTASSIUM - SERUM 3.5 mmol/L (3.5-5.1); SODIUM 142 mmol/L (136-145); UREA NITROGEN 13 mg/dL (7-18); eGFR NON AFRICAN AMERICAN > 90 mL/min (90-120)
[2018-12-12 19:04] LABS: ALBUMIN 3.4 g/dL (3.4-5.0); ALKALINE PHOSPHATASE 82 U/L (46-116); ALT (SGPT) 17 U/L (10-68); BILIRUBIN - TOTAL 0.26 mg/dL (0.2-1.3); CREATINE KINASE 35 UL (21-232); PRO BNP 362 pg/mL (0-125); PROTEIN - SERUM 6.8 g/dL (6.4-8.2)
[2018-12-12 19:07] LABS: TROPONIN-I < 0.017 ng/mL (0.000-0.060)
[2018-12-12] MEDS ORDERED: BUSPAR5 MG PO (19:54)
[2018-12-12] MEDS ORDERED: TOPROL XL50 MG PO (19:54)
[2018-12-12] MEDS ORDERED: LISINOPRIL30 MG PO (19:54)
[2018-12-12] MEDS ORDERED: TOPAMAX50 MG PO (19:55)
[2018-12-12] MEDS ORDERED: BUPROPION HCL150 M1 PO (19:55)
--- NOTE | 2018-12-12 20:09 | NUR ---
DR OCAMPO NOTIFIED AND REVIEWED PT;s BEHAVIOR AND ASSESSMENT RESULTS. PT IS A LOW RISK PER DR OCAMPO. DR OCAMPO STATED TO GIVE RESOURCES TO PT AT TIME OF DISCHARGE. NO FURTHER ORDERS AT THIS TIME, RESOURCES REVIEWED WITH PT AND HE VERBALIZED UNDERSTANDING.
[2018-12-12 20:23] VITALS: BP 145/72
== END 2018-12-12 20:05 | disposition home or self-care (01) ==
LOC: D.ER 17:54
PROVIDERS: Family Medicine
DX: I10 Essential (primary) hypertension (principal)

== ENCOUNTER → 2019-07-21 12:22 | Outpatient (CLI) | payer MEDICARE ==
[2018-12-12 17:56] VITALS: BMI 37.6
[~2019-07-21 12:22] MED LIST changes: +BUPROPION HCL150 M1 PO; +BUSPAR5 MG PO; +LISINOPRIL30 MG PO; +TOPAMAX50 MG PO; +TOPROL XL50 MG PO
== END | disposition home or self-care (01) ==
LOC: D.US 11:30
PROVIDERS: ATTEND Internal Medicine Cardiovascular Disease
DX: I65.23 Occlusion and stenosis of bilateral carotid arteries (principal)

== ENCOUNTER 2020-06-24 15:13 | Inpatient (IN) | payer MEDICARE, MEDICAID ==
[~2020-06-24] VITALS: Ht 182.9 cm; Wt 122.5 kg
[2020-06-24 16:01] LABS: BASOPHILS 0.2 % (0-2); EOSINOPHILS 1.5 % (0-7); HEMATOCRIT 38.3 % (42.0-54.0); IMMATURE GRANULOCYTES 0.3 % (0-5); LYMPHOCYTE ABS# 2.62 10x3/uL (1.32-3.57); LYMPHOCYTES 25.5 % (15-50); MCH 31.3 pg (26.0-34.0); MCHC 33.9 g/dL (31.0-37.0); MCV 92.3 fL (80.0-100.0); MEAN PLATELET VOLUME 8.8 fL (7.4-10.4); MONOCYTES 7.7 % (2-11); NEUTROPHIL ABS# 6.66 10x3/uL (1.78-5.38); NEUTROPHILS 64.8 % (40-80); PLATELET COUNT 301 10x3/uL (130-400); RBC 4.15 10x6/uL (4.20-6.10); RDW 13.5 % (11.5-14.5); WBC 10.3 10x3/uL (4.8-10.8)
[2020-06-24 16:09] LABS: CALC OSMOLALITY 272 mosm/kg (275-300); CALCIUM 8.7 mg/dL (8.5-10.1); CARBON DIOXIDE 30.6 mmol/L (21.0-32.0); CHLORIDE - SERUM 104 mmol/L (98-107); GLUCOSE 126 mg/dL (74-106); SODIUM 136 mmol/L (136-145); UREA NITROGEN 10 mg/dL (7-18); eGFR NON AFRICAN AMERICAN 83 mL/min (90-120)
[2020-06-24 16:21] LABS: ALBUMIN 2.4 g/dL (3.4-5.0); ALKALINE PHOSPHATASE 72 U/L (30-120); ALT (SGPT) 30 U/L (10-68); PROTEIN - SERUM 8.3 g/dL (6.4-8.2)
--- NOTE | 2020-06-24 17:17 | NUR ---
PATIENT TAKEN TO CT AT THIS TIME. SECONDARY IV STARTED PRIOR TO THAT, 20 GAUGE IV TO LEFT AC STARTED. PATIENT TOLERATED WELL, NO S/S OF INFILTRATION, FLUSHES WELL.
--- NOTE | 2020-06-24 18:45 | NUR ---
PT ARRIVES TO ROOM VIA STRETCHER ESCORTED BY HOSPITAL STAFF. PT IS AAO X 4 AND ANSWERS ALL QUESTIONS APPROPRIATELY. PT REPORTS PAIN TO BLE 10/10 AND DESCRIBED BURNING. WEEPING OPEN SORES NOTED. PT STATES "PLEASE WHATEVER YOU DO, DO NOT TOUCH MY LEGS". PT REFUSES SCDS AND DRESSINGS TO BLE SORES AT THIS TIME. PIV TO R HAND AND LEFT AC NOTED. PT REFUSES TO ALLOW THIS NURSE TO PALPATE BLE PULSES. DISCOLORATION NOTED TO BLE/FEET/TOES. LUACS ALARM IS ON AND WORKING. PT DENIES PRESENCE OF N/V/DYSPNEA/SOB AT THIS TIME. BED IS IN THE LOWEST POSITION. CALL LIGHT AND BEDSIDE TABLE ARE WITHIN REACH. SIDE RAILS X 2. PT DENIES FURTHER NEEDS. WILL NOTIFY MANAGEMENT AIDE NURSE OF PT ARRIVAL.
[2020-06-24 19:02] VITALS: BMI 36.7
[2020-06-24 20:00] VITALS: BP 149/86; BP 165/111
[2020-06-25] VITALS: BP 119/72
[2020-06-25 04:00] VITALS: BP 118/65
[2020-06-25 07:02] LABS: BASOPHILS 0.2 % (0-2); HEMATOCRIT 37.2 % (42.0-54.0); HEMOGLOBIN 12.3 g/dL (13.5-17.5); IMMATURE GRANULOCYTES 0.3 % (0-5); LYMPHOCYTE ABS# 2.71 10x3/uL (1.32-3.57); LYMPHOCYTES 24.3 % (15-50); MCHC 33.1 g/dL (31.0-37.0); MCV 93.7 fL (80.0-100.0); NEUTROPHIL ABS# 7.59 10x3/uL (1.78-5.38); NEUTROPHILS 68.2 % (40-80); PLATELET COUNT 325 10x3/uL (130-400); RBC 3.97 10x6/uL (4.20-6.10); RDW 13.8 % (11.5-14.5); WBC 11.1 10x3/uL (4.8-10.8)
[2020-06-25 07:26] LABS: CALC OSMOLALITY 277 mosm/kg (275-300); CALCIUM 8.3 mg/dL (8.5-10.1); CARBON DIOXIDE 28.4 mmol/L (21.0-32.0); CHLORIDE - SERUM 105 mmol/L (98-107); GLUCOSE 94 mg/dL (74-106); POTASSIUM - SERUM 4.1 mmol/L (3.5-5.1); SODIUM 139 mmol/L (136-145); UREA NITROGEN 12 mg/dL (7-18); eGFR NON AFRICAN AMERICAN 83 mL/min (90-120)
[2020-06-25 08:52] VITALS: BP 112/68
--- NOTE | 2020-06-25 09:51 | NUR ---
ALERT AND ORIENTED. ASSESSMENT COMPLETE. DENIES NEEDS. BED LOW. CALL SANTOS AND PERSONAL ITEMS IN REACH. WILL CONTINUE TO MONITOR.
--- NOTE | 2020-06-25 10:02 | NUR ---
WOUND CULTURE COLLECTED FROM DRAINING WOUND ON RIGHT INNER CALF. NO OTHER SORES APPEAR TO BE DRAINING AT THIS TIME.
--- NOTE | 2020-06-25 10:57 | NUR ---
WOUND ASSESSMENT. BILATERAL LOWER EXTREMITY CELLULITIS. REDNESS ON RIGHT LEG STARTS 4.5 INCHES BELOW BOTTOM OF KNEECAP. MARKED. REDNESS ON LEFT LEG STARTS 3.5 INCHES BELOW BOTTOM OF KNEECAP. MARKED. 5 SORES TO RIGHT LEG NOTED. RIGHT UPPER OUTTER BROOKE 2.5 X 1 INCH. RIGHT LOWER OUTTER BROOKE 1.75 X 1 INCH. RIGHT UPPER INNER BROOKE 2.5 X 0.5 INCH. RIGHT LOWER INNER BROOKE 4.5 X 1 INCH. RIGHT INNER CALF 3 X 2 INCH. 3 SORES TO LEFT LEG NOTED. LEFT INNER CALF 1 X 1 INCH. LEFT UNDERSIDE OF ANKLE 1.5 X 1 INCH. LEFT OUTTER BROOKE 4.5 X 3 INCH. ASSESSMENT AND MEASUREMENTS PERFORMED WITH DR ORELLANA IN ROOM. ALL TOENAILS LOVELACE/BLACK AND THICKENED. DR WOODS CONSULTED PER DR ORELLANA FOR TOENAIL FUNGUS.
[2020-06-25 12:29] VITALS: BP 100/61
[2020-06-25 13:13] VITALS: Ht 182.9 cm; Wt 122.5 kg
[2020-06-25 17:12] VITALS: BP 102/66
--- NOTE | 2020-06-26 04:55 | NUR ---
PT PARI MUTUAL TICKET CHECKER LIGHT, GENI DOWNING WAS ON HIS ROOM HELPING HIS WHEN I WALK IN HE WAS RUDELY TALKING THAT NO ONE HAS BEEN IN HIS ROOM AT ALL SINCE 9PM THE PREVIOUS NIGTH AND NO VITALS WHERE TAKING FROM HIM. I CHECK ON PT AND DIFFERENT MEDICATIONS WERE GIVEN TO PT LAST ONE WAS AT 2340. PT WAS ENCOURAGE TO USE CALL LIGHT SINCE IT WAS PLACE NEXT TO HIM, HE WAS DEMANDING A SANDWICH AND I WAS NOT ABLE TO FIND ONE AT THE MOMENT FOR HIM. WILL CONT WITH PLAN OF CARE.
--- NOTE | 2020-06-26 05:40 | NUR ---
I have reviewed this patient and I concur with the Shift Assessment completed by the Licensed Practical Nurse today this shift.
[2020-06-26 05:48] VITALS: BP 114/67
[2020-06-26 06:04] VITALS: BP 112/54
--- NOTE | 2020-06-26 07:00 | NUR ---
PT BED SIDE REPORT COMPLETE. PT EASILY AWAKENED. LAYING ON LEFT SIDE. CL IN REACH. BED ALARM ON. NO NEEDS AT THIS TIME. WCTM
[2020-06-26 07:06] LABS: BASOPHILS 0.3 % (0-2); EOSINOPHILS 1.9 % (0-7); HEMATOCRIT 35.9 % (42.0-54.0); HEMOGLOBIN 11.7 g/dL (13.5-17.5); IMMATURE GRANULOCYTES 0.4 % (0-5); LYMPHOCYTE ABS# 2.57 10x3/uL (1.32-3.57); LYMPHOCYTES 33.1 % (15-50); MCH 30.9 pg (26.0-34.0); MCHC 32.6 g/dL (31.0-37.0); MCV 94.7 fL (80.0-100.0); MEAN PLATELET VOLUME 9.1 fL (7.4-10.4); MONOCYTES 7.6 % (2-11); NEUTROPHIL ABS# 4.41 10x3/uL (1.78-5.38); NEUTROPHILS 56.7 % (40-80); PLATELET COUNT 293 10x3/uL (130-400); RBC 3.79 10x6/uL (4.20-6.10)
[2020-06-26 07:10] LABS: WBC 7.8 10x3/uL (4.8-10.8)
[2020-06-26 07:19] LABS: CHOL - HDL RATIO 3.9 ratio (2.3-4.9); CREATININE - SERUM 1.2 mg/dL (0.6-1.3); LDL-HDL RATIO 2.3 ratio (1.5-3.5)
--- NOTE | 2020-06-26 07:30 | NUR ---
PT UP TO BATHROOM. POSSE ALARM GOING OFF. WAS ASSISTED BY KENO DEALER NURSE. CL IN REACH. NO NEEDS AT THIS TIME. WCTM
[2020-06-26 08:27] VITALS: BP 128/47
--- NOTE | 2020-06-26 11:40 | NUR ---
IV SL LOCKED. CL IN REACH. PT SITTING UP IN BED ASLEEP. WCTM
[2020-06-26 12:43] VITALS: BP 119/62
[2020-06-26 17:23] VITALS: BP 137/58
--- NOTE | 2020-06-26 17:54 | NUR ---
PT STATES HE HAS BEEN TRYING TO GET HIS TAXES DONE ALL DAY. ASKED TO SEE IF HIS PHONE WOULD CHARGE. I PLUGGED IT UP TO ANOTHER PLUG AND BATTERY IS CHARGING. CL IN REACH. TM
--- NOTE | 2020-06-26 19:48 | NUR ---
PATIENT RESTING IN BED WITH NO S/S OF DISTRESS AND DENIES NEEDS AT THIS TIME. BED IN LOWEST POSITION AND CALL LIGHT IN REACH. ENCOURAGED PATIENT TO CALL WITH NEEDS.
[2020-06-26 20:00] VITALS: BP 140/71
--- NOTE | 2020-06-26 21:02 | NUR ---
ADMINISTERED MEDS PER ORDERS. PATIENT BETHANY WELL. ENCOURAGED TO CALL WITH NEEDS.
--- NOTE | 2020-06-27 02:41 | NUR ---
PATIENT RESTING IN BED WITH EYES CLOSED, NO S/S OF DISTRESS
[2020-06-27 07:00] VITALS: BP 117/54
--- NOTE | 2020-06-27 07:30 | NUR ---
PT SET OFF BED ALARM GETTING UP TO USE BATHROOM. CL IN REACH. STATES NO PAIN AT THIS TIME. BESIDES WHEN HE HAS TO GET UP. NO NEEDS. WCTM
--- NOTE | 2020-06-27 11:30 | NUR ---
IV THERAPY ATTEMPTED IN LEFT FOREARM. NO SUCCESS. WILL GET VEIN FINDER. DRESSING CHANGED SINCE PT SHOWERED AND NEEDED NEW DRESSINGS ANYWAY. PLACED NON ADHERENT PAD AND KERLEX AROUND. CLEANED WITH BETADINE. CL IN REACH. WCTM
--- NOTE | 2020-06-27 15:11 | NUR ---
IV THERAPY RESTARTED IN RIGHT AC WITH ULTRASOUND BY GENEVIEVE FROM ER. CL IN REACH. SHADES CLOSED. LIGHTS OFF PER PT REQUEST. ANNETTE
[2020-06-27 15:29] VITALS: BP 116/70
--- NOTE | 2020-06-27 19:00 | NUR ---
BEDSIDE REPORT RECEIVED AND CARE OF PT ASSUMED. PT AMBULATING IN ROOM AT THIS TIME. CLEARED ROOM OF EMPTY CUPS, TRASH AND DIRTY LAUNDRY. IV TO RIGHT AC SALINE LOCKED. CONTACT ISOLATION IN PLACE. WILL MONITOR FOR NEEDS.
--- NOTE | 2020-06-27 19:30 | NUR ---
SUPPLIED PT WITH FRESH WATER , LEMON [place] SODA, AND SANDWICH TRAY.
--- NOTE | 2020-06-27 19:58 | NUR ---
HS MEDICATIONS GIVEN TO INCLUDE BACLOFEN PO PER REQUEST FOR BACK SPASMS.
--- NOTE | 2020-06-27 20:10 | NUR ---
GAVE X2 CHOCOLATE PUDDINGS PER REQUEST. WILL CONTINUE TO MONITOR FOR NEEDS.
[2020-06-27 20:42] VITALS: BP 139/80
--- NOTE | 2020-06-28 07:19 | NUR ---
RECIEVED BEDSIDE REPORT. IN BED SLEEPING, FREE FROM SIGNS OF DISTRESS. BED LOW POSITION, CALL LIGHT IN REACH. WILL CONTINUE TO MONITOR.
[2020-06-28 10:18] VITALS: BP 116/68
[2020-06-28 14:00] VITALS: BP 106/56
[2020-06-28 17:54] VITALS: BP 104/67
[2020-06-28 20:00] VITALS: BP 129/72
[2020-06-29] VITALS: BP 131/66
--- NOTE | 2020-06-29 03:56 | NUR ---
PATIENT HAS HAD PAIN MANAGED WITH THE PRESCRIBED PAIN MEDICATION, HE APPEARS TO BE RESTING WELL AT THIS TIME, HE IS CURRENTLY RESTING IN BED WITH HIS EYES CLOSED.
[2020-06-29 04:00] VITALS: BP 148/75
[2020-06-29 06:26] LABS: CREATININE - SERUM 1.2 mg/dL (0.6-1.3); VANCOMYCIN - TROUGH 19.3 ug/mL (10.0-20.0)
--- NOTE | 2020-06-29 07:08 | NUR ---
PATIENT PULLED OUT IV, 3 NURSES INCLUDING AN ICU NURSE TRIED BUT WERE UNSUCCESSFUL.
--- NOTE | 2020-06-29 08:45 | NUR ---
CAME INTO PATIENT ROOM, INTRODUCED MYSELF AND TOLD HOIM I HAD MORNING MEDICATIONS FOR HIM, PATIENT ASKED IF HE WAS GETTING ORAL ANTIBIOTICS, EXPLAINED THAT DR ORELLANA HAS ORDERED AN IM ANTIBIOTIC BECAUSE OF THE BACTERIA GROWING IN HIS WOUND. PATIENT RECEIVED A BREAKFAST TRAY AND STATED THAT IT ISNT RIGHT HE SHOULD HAVE MORE FOOD. PATIENT THEN CALLED KITCHEN AND STARTED TO YELL AT THEM WANTING TO KNOW WHO CHANGED HIS DIET, I EXPLAINED THAT HIS DOCTOR DID. PATIENT THEN TOLD ME TO GET OUT HE WANTED A NEW NURSE AND WANTED THE CHARGE NURSE
[2020-06-29 10:02] VITALS: BP 118/81
--- NOTE | 2020-06-29 10:12 | NUR ---
PATIENT ATTEMPTED TO GET IN SHOWER, TECH INFORMED PATIENT THAT SHE WOULD NEED TO WRAP HIS LEGS UP FOR SHOWER. PATIENT TOLD HER TO STOP TRYING TO CONTROL HIM AND USED CHOICE WORDS AND TOLD HER TO LEAVE. CONTINUE WITH PLAN OF CARE
--- NOTE | 2020-06-29 13:39 | NUR ---
PATIENT HAS CAMED DOWN AND APOLOGIZED FOR HIS BEHAVIOR, STATED HE IS HAVING A BAD DAY, ORDERED PATIENT BURGER AND FRIES FOR LUNCH, HE DID NOT CARE FOR MEATLOAF SERVED, WRAPPED PATIENT LEGS WITH FREDERICK BANDAGE WELL. SHANTE WITH PLAN OF CARE
--- NOTE | 2020-06-29 14:40 | NUR ---
I have reviewed this patient and I concur with the Shift Assessment completed by the Licensed Practical Nurse today this shift.
[2020-06-29 14:48] VITALS: BP 126/59
[2020-06-29 17:21] VITALS: BP 106/56
[2020-06-29 20:00] VITALS: BP 114/60
--- NOTE | 2020-06-29 20:00 | NUR ---
PT SITTING UP IN BED WITHOUT DISTRESS, AOX4. REQUESTED AND GIVEN NORCO FOR PAIN 8/10 TO BILAT LEGS. REQUESTED AND GIVEN LEMON [place] SODA. DENIES OTHER NEEDS. CL IN REACH
--- NOTE | 2020-06-30 01:00 | NUR ---
PT UP WALKING AROUND ROOM. REQUESTED AND GIVEN SANDWICH TRAY. DENIES OTHER NEEDS. CL IN REACH
[2020-06-30 04:00] VITALS: BP 122/75
--- NOTE | 2020-06-30 07:27 | NUR ---
DR ORELLANA NOTIFIED THAT PATIENT C/O DIARRHEA AND NOT ON PROBIOTICS. STATES WILL PLACE ORDERS.
[2020-06-30 07:53] LABS: BASOPHILS 0.6 % (0-2); EOSINOPHILS 1.6 % (0-7); HEMATOCRIT 38.7 % (42.0-54.0); LYMPHOCYTES 24.7 % (15-50); MCH 30.8 pg (26.0-34.0); MCHC 33.7 g/dL (31.0-37.0); MCV 91.3 fL (80.0-100.0); MEAN PLATELET VOLUME 6.9 fL (7.4-10.4); MONOCYTES 6.7 % (2-11); NEUTROPHILS 66.4 % (40-80); PLATELET COUNT 369 10x3/uL (130-400); RBC 4.24 10x6/uL (4.20-6.10); RDW 13.8 % (11.5-14.5); WBC 10.3 10x3/uL (4.8-10.8)
[2020-06-30 07:57] LABS: CREATININE - SERUM 1.2 mg/dL (0.6-1.3)
[2020-06-30 07:58] LABS: CALCIUM 8.8 mg/dL (8.5-10.1); CARBON DIOXIDE 20.9 mmol/L (21.0-32.0); POTASSIUM - SERUM 3.9 mmol/L (3.5-5.1)
--- NOTE | 2020-06-30 08:02 | NUR ---
ALERT AND ORIENTED. ASSESSMENT COMPLETE. BED LOW. CALL SANTOS AND PERSONAL ITEMS IN REACH. WILL CONTINUE TO MONITOR.
[2020-06-30 08:39] VITALS: BP 124/73
--- NOTE | 2020-06-30 09:16 | NUR ---
SPOKE WITH DR ORELLANA ABOUT INCREASING PATIENT'S PRN PAIN MEDICATION PER PATIENT REQUEST. PRN PAIN MED CHANGED FROM TID PRN TO Q4HP.
--- NOTE | 2020-06-30 09:59 | NUR ---
PATIENT SLEEPING AFTER PRN PAIN MEDICATION. WILL CONTINUE TO MONITOR.
[2020-06-30 12:34] VITALS: BP 121/55
--- NOTE | 2020-06-30 13:21 | NUR ---
Nutrition follow-up: Pt in isolation for +C.Diff. Diet order: Regular PO intake 100% of most meals; pt also eating snacks Loose stools; probiotic ordered Wt: 270# Labs reviewed + fluid balance per I/O Pt with good po intake at this time. Pt currently meeting nutritional goals. RDN will follow-up on pt progress: 07/05/20
--- NOTE | 2020-06-30 14:43 | MORECARE ---
CASE MANAGEMENT DISCHARGE SUMMARY PATIENT: TAMARA JOHNSON UNIT: [id number] ADM DATE: 06/24/20 AGE: 55 : 67 SEX: M ROOM/BED: D.2219 AUTHOR: CHINTAN,DOC PHYSICIAN: REFERRING PHYSICIAN: MAGDALENA ORELLANA MD DATE OF SERVICE: 06/30/20 Case Management Discharge Planning Summary DCP REVIEW SUMMARY ANTICIPATED D/C DATE: EXPECTED LOS : CASE STATUS: DCP Initiated INITIAL REVIEW: 06/24/2020 INITIAL REVIEWER: Yoanna Vega FINAL DISCHARGE DISPOSITION: : FINAL REVIEWER: FINAL REVIEW DATE: DCP Focus Questions & Answers QUESTION: ANSWER : PATIENT: TAMARA JOHNSON ENCOUNTER: [id number] MEDICAL RECORD#: [id number] ADMISSION DATE: 06/24/2020 DISCHARGE DATE: ATTENDING MD: MAGDALENA SANTIAGO : AGE: 55 MARITAL STATUS: D DC PLAN ID: [id number] FACILITY: [facility] PRINTED ON: 06/30/20 14:43 CT All edits/amendments must be made on the electronic document DICTATION DATE: 06/30/201442 COVERAGE SPECIALIST RN: DM 06/30/20 1443 RPT#: [id number] DC DATE: STATUS: ADM IN [facility] [address] [place] [address] END OF REPORT
--- NOTE | 2020-06-30 14:57 | MORECARE ---
CASE MANAGEMENT DISCHARGE SUMMARY PATIENT: TAMARA JOHNSON UNIT: [id number] ADM DATE: 06/24/20 AGE: 55 : 67 SEX: M ROOM/BED: D.2219 AUTHOR: CHINTANDOC PHYSICIAN: REFERRING PHYSICIAN: MAGDALENA ORELLANA MD DATE OF SERVICE: 06/30/20 Case Management Discharge Planning Summary DCP REVIEW SUMMARY ANTICIPATED D/C DATE: EXPECTED LOS : CASE STATUS: DCP Initiated INITIAL REVIEW: 06/24/2020 INITIAL REVIEWER: Yoanna Vega FINAL DISCHARGE DISPOSITION: : FINAL REVIEWER: FINAL REVIEW DATE: DCP Focus Questions & Answers DCP Screen QUESTION: ANSWER High Risk Factors: : Polypharmacy (greater than 10 meds) DCP Evaluation QUESTION: ANSWER Family / Caregiver's ability to cope with chronic illness: : a. Adequate (ability to meet patient's medical needs, ensures patient attends medical appts.) Patient's current cognitive status: : *Oriented to person, place, situation, time and present Patient's ability to cope with chronic illness : d. No chronic illness Functional screen assessment: : New onset in difficulty in gait, balance, or transfer difficulties Family / Caregiver's ability to cope with chronic illness: : b. Minimal (occasionally not dependable to meet pt's. needs, can meet pt's. basic ADL's) Physical Status: : Independent with ADL's Equipment needed for post hospitalization: : Cane - Single Leg Is there a likelihood that the patient will require additional services to return to the preadmission environment? : Yes Functional screen comments: : needs pt/ot Living Arrangements: : Home Alone with Support Results of this evaluation have been discussed with: : Patient Patient with capacity for self-care or can be cared for in same environment as prior to hospitalization? : Yes Living arrangements comments: : lives alone and has some family and friends Baseline cognitive status: : *Oriented to person, place, situation, time and present Physical environment modification needed / anticipated for discharge: : Yes Comments: : will have home health Medication Management: : Patient states can afford medications Planned post hospital services available for patient? : Yes Pharmacy name(s): [facility] unsure if he can afford medications Planned post hospital services covered by insurance plan? : Yes Does Patient have transportation to get home and to follow-up medical appointments when discharged from the hospital? : Yes Comments: : will call someone Would patient like to participate in any Care Coordination programs (if applicable): : Not applicable Other Care Coordination programs/comments: : bonilla signed for hh Does the patient have electricity at home? : Yes Does the patient have running water in their house? : Yes Equipment in use: : Cane - Single Leg Mental health screen: : No mental health history Psychosocial status: : Adult with physical limitations Resources / Services in place: : Home health DCP Re-evaluation QUESTION: ANSWER Would patient like to participate in any Care Coordination programs (if applicable): : Not applicable PATIENT: TAMARA JOHNSON ENCOUNTER: [id number] MEDICAL RECORD#: [id number] ADMISSION DATE: 06/24/2020 DISCHARGE DATE: ATTENDING MD: MAGDALENA SANTIAGO : AGE: 55 MARITAL STATUS: D DC PLAN ID: [id number] FACILITY: [facility] PRINTED ON: 06/30/20 14:57 CT All edits/amendments must be made on the electronic document DICTATION DATE: 06/30/201456 PROTEIN CHEMIST: MAHIN 06/30/201456 RPT#: [id number] DC DATE: STATUS: ADM IN [facility] [address] [place] [address] END OF REPORT
--- NOTE | 2020-06-30 15:08 | MORECARE ---
CASE MANAGEMENT DISCHARGE SUMMARY PATIENT: TAMARA JOHNSON UNIT: [id number] ADM DATE: 06/24/20 AGE: 55 : 67 SEX: M ROOM/BED: D.2219 AUTHOR: CHINTAN,DOC PHYSICIAN: REFERRING PHYSICIAN: MAGDALENA ORELLANA MD DATE OF SERVICE: 06/30/20 Case Management Discharge Planning Summary COMMENTS ENTERED DATE: 06/30/20 14:56 CT COMMENT TYPE: Discharge Planning REVIEWER: Yoanna Vega CM met with patient to complete initial dc planning assessment. Patient was in SO much pain while I was in the room for my assessment. CM educated patient on the CM role and verbal consent given by patient to complete assessment. Patient lives at home by himself where he plans to return to when he is discharged. At discharge patient plans to return home and feels this is a safe discharge. I am unsure if this is the safest DC, due to his physical status and pain. He is agreeable for and BONILLA signed with [facility]. He said that he would call a friend to take him home when it is time. He has a friend who helps clean a house. He has a cane that he uses, but right now he is in so much pain he can not ambulate. He is a patient of Dr Macario's and uses [facility] on [address]. IMM served and explained. CM will continue to follow and will assist as needed with dc plans/needs. DCP REVIEW SUMMARY ANTICIPATED D/C DATE: EXPECTED LOS : CASE STATUS: DCP Initiated INITIAL REVIEW: 06/24/2020 INITIAL REVIEWER: Yoanna Vega FINAL DISCHARGE DISPOSITION: : FINAL REVIEWER: FINAL REVIEW DATE: DCP Focus Questions & Answers DCP Screen QUESTION: ANSWER High Risk Factors: : Polypharmacy (greater than 10 meds) DCP Evaluation QUESTION: ANSWER Family / Caregiver's ability to cope with chronic illness: : a. Adequate (ability to meet patient's medical needs, ensures patient attends medical appts.) Patient's current cognitive status: : *Oriented to person, place, situation, time and present Patient's ability to cope with chronic illness : d. No chronic illness Functional screen assessment: : New onset in difficulty in gait, balance, or transfer difficulties Family / Caregiver's ability to cope with chronic illness: : b. Minimal (occasionally not dependable to meet pt's. needs, can meet pt's. basic ADL's) Physical Status: : Independent with ADL's Equipment needed for post hospitalization: : Cane - Single Leg Is there a likelihood that the patient will require additional services to return to the preadmission environment? : Yes Functional screen comments: : needs pt/ot Living Arrangements: : Home Alone with Support Results of this evaluation have been discussed with: : Patient Patient with capacity for self-care or can be cared for in same environment as prior to hospitalization? : Yes Living arrangements comments: : lives alone and has some family and friends Baseline cognitive status: : *Oriented to person, place, situation, time and present Physical environment modification needed / anticipated for discharge: : Yes Comments: : will have home health Medication Management: : Patient states can afford medications Planned post hospital services available for patient? : Yes [facility]acy [facility](s): [facility] unsure if he can afford medications Planned post hospital services covered by insurance plan? : Yes Does Patient have transportation to get home and to follow-up medical appointments when discharged from the hospital? : Yes Comments: : will call someone Would patient like to participate in any Care Coordination programs (if applicable): : Not applicable Other Care Coordination programs/comments: : bonilla signed for hh Does the patient have electricity at home? : Yes Does the patient have running water in their house? : Yes Equipment in use: : Cane - Single Leg Mental health screen: : No mental health history Psychosocial status: : Adult with physical limitations Resources / Services in place: : Home health DCP Re-evaluation QUESTION: ANSWER Would patient like to participate in any Care Coordination programs (if applicable): : Not applicable PATIENT: TAMARA JOHNSON ENCOUNTER: [id number] MEDICAL RECORD#: [id number] ADMISSION DATE: 06/24/2020 DISCHARGE DATE: ATTENDING MD: MAGDALENA SANTIAGO : AGE: 55 MARITAL STATUS: D DC PLAN ID: [id number] FACILITY: [facility] PRINTED ON: 06/30/20 15:08 CT All edits/amendments must be made on the electronic document DICTATION DATE: 06/30/20 1508 COUNTER SALES REPRESENTATIVE: MAHIN 06/30/20 1508 RPT#: [id number] DC DATE: STATUS: ADM IN [facility] [address] [place] [address] END OF REPORT
[2020-06-30 16:54] VITALS: BP 105/526
[2020-06-30 20:00] VITALS: BP 96/55
--- NOTE | 2020-06-30 20:00 | NUR ---
PT SITTING UP IN BED WITHOUT DISTRESS, AOX4. STATES HE FEELS LIKE PAIN TO LEGS IS GETTING WORSE. REQUESTED THIS NURSE TAKE DRESSINGS OFF LEGS AND LOOK AT THEM. TOOK DRESSINGS OFF AND CHANGED PER ORDERS. SOME REDNESS TO SHINS AND UCLERATIONS ARE RED AND HEALING. DRYNESS/CRACKING TO BILAT LEGS. PT STATES HE WANTS TO TALK TO DR WOODS TOMORROW ABOUT LEGS. TOLD PT I WOULD LET DAY NURSE KNOW TO LET DR WOODS KNOW WHEN HE ROUNDS. DENIES OTHER NEEDS AT THIS TIME. CL IN REACH
--- NOTE | 2020-07-01 00:20 | NUR ---
PT UP WALKING AROUND ROOM CLEANING AND WIPING THINGS DOWN BUT ONCE BACK IN BED STATES PAIN 10/. REQUESTED AND GIVEN NORCO AND BACLOFEN. STATES AGAIN IT FELT LIKE HIS LEGS WERE WORSE AND FELT LIKE HE COULD NOT MOVE THEM MUCH. REQUESTED AND GIVEN SANDWICH TRAY AND PUDDING. DENIES OTHER NEEDS. CL IN REACH
[2020-07-01 04:00] VITALS: BP 110/62
[2020-07-01 08:25] VITALS: BP 102/60
[2020-07-01 12:50] VITALS: BP 126/66
[2020-07-01 15:12] LABS: AEROBE ID Final report (())
[2020-07-01 17:08] VITALS: BP 146/71
[2020-07-01 20:00] VITALS: BP 123/66
--- NOTE | 2020-07-01 20:00 | NUR ---
PT SITTING UP IN BED WITHOUT DISTRESS, AOX4. REQUESTED AND GIVEN HS MEDS. DENIES OTHER NEEDS AT THIS TIME. CL IN REACH
--- NOTE | 2020-07-01 23:00 | NUR ---
PT MADE 3 LAPS WALKING AROUND NURSES STATION AT THIS TIME WITHOUT PAIN OR DISTRESS
[2020-07-02 04:00] VITALS: BP 125/70
--- NOTE | 2020-07-02 05:30 | NUR ---
PT MADE 2 LAPS AROUND NURSES STATION AT THIS TIME. PROVIDED NEWS PAPER AND LEMON [place] SODA AND PT WENT BACK TO ROOM. DENIES OTHER NEEDS
[2020-07-02 09:11] VITALS: BP 107/74
[2020-07-02] MEDS ORDERED: BACLOFEN10 MG PO (09:39)
[2020-07-02] MEDS ORDERED: VIBRAMYCIN 100100 MG PO (09:39)
[2020-07-02] MEDS ORDERED: TYLENOL W/CODEI1 TAB PO (09:40)
[2020-07-02] MEDS ORDERED: GABAPENTIN100 MG PO (09:41)
[2020-07-02] MEDS ORDERED: PROTONIX40 MG PO (09:41)
[2020-07-02] MEDS ORDERED: FLORAJEN DIGES1 EACH PO (09:41)
[2020-07-02] MEDS ORDERED: NEURONTIN 300300 MG PO (09:41)
--- NOTE | 2020-07-02 14:39 | NUR ---
walked patient 250 feet
--- NOTE | 2020-07-02 14:54 | MORECARE ---
CASE MANAGEMENT DISCHARGE SUMMARY PATIENT: TAMARA JOHNSON UNIT: [id number] ADM DATE: 06/24/20 AGE: 55 : 67 SEX: M ROOM/BED: D.2219 AUTHOR: CHINTAN,DOC PHYSICIAN: REFERRING PHYSICIAN: MAGDALENA ORELLANA MD DATE OF SERVICE: 07/02/20 Case Management Discharge Planning Summary COMMENTS ENTERED DATE: 07/02/20 14:42 CT COMMENT TYPE: Discharge Planning REVIEWER: Yoanna Vega PATIENT DISCHARGED HOME WITH [facility], ALL ORDERS WERE SENT TO [facility] AND I SPOKE WITH LUDA AVILEZ ENTERED DATE: 06/30/20 14:56 CT COMMENT TYPE: Discharge Planning REVIEWER: Yoanna Vega CM met with patient to complete initial dc planning assessment. Patient was in SO much pain while I was in the room for my assessment. CM educated patient on the CM role and verbal consent given by patient to complete assessment. Patient lives at home by himself where he plans to return to when he is discharged. At discharge patient plans to return home and feels this is a safe discharge. I am unsure if this is the safest DC, due to his physical status and pain. He is agreeable for HH and BONILLA signed with [place]. He said that he would call a friend to take him home when it is time. He has a friend who helps clean a house. He has a cane that he uses, but right now he is in so much pain he can not ambulate. He is a patient of Dr Mahmood and uses [facility] [address]. IMM served and explained. CM will continue to follow and will assist as needed with dc plans/needs. DCP REVIEW SUMMARY ANTICIPATED D/C DATE: EXPECTED LOS : CASE STATUS: DCP Initiated INITIAL REVIEW: 06/24/2020 INITIAL REVIEWER: Yoanna Vega FINAL DISCHARGE DISPOSITION: : FINAL REVIEWER: FINAL REVIEW DATE: DCP Focus Questions & Answers DCP Screen QUESTION: ANSWER High Risk Factors: : Polypharmacy (greater than 10 meds) DCP Evaluation QUESTION: ANSWER Patient's current cognitive status: : *Oriented to person, place, situation, time and present Patient's ability to cope with chronic illness : d. No chronic illness Family / Caregiver's ability to cope with chronic illness: : a. Adequate (ability to meet patient's medical needs, ensures patient attends medical appts.) Functional screen assessment: : New onset in difficulty in gait, balance, or transfer difficulties Family / Caregiver's ability to cope with chronic illness: : b. Minimal (occasionally not dependable to meet pt's. needs, can meet pt's. basic ADL's) Physical Status: : Independent with ADL's Functional screen comments: : needs pt/ot Equipment needed for post hospitalization: : Cane - Single Leg Is there a likelihood that the patient will require additional services to return to the preadmission environment? : Yes Living Arrangements: : Home Alone with Support Results of this evaluation have been discussed with: : Patient Patient with capacity for self-care or can be cared for in same environment as prior to hospitalization? : Yes Baseline cognitive status: : *Oriented to person, place, situation, time and present Living arrangements comments: : lives alone and has some family and friends Comments: : will have home health Physical environment modification needed / anticipated for discharge: : Yes Medication Management: : Patient states can afford medications Planned post hospital services available for patient? : Yes [facility](s[facility] unsure if he can afford medications Planned post hospital services covered by insurance plan? : Yes Does Patient have transportation to get home and to follow-up medical appointments when discharged from the hospital? : Yes Comments: : will call someone Would patient like to participate in any Care Coordination programs (if applicable): : Not applicable Other Care Coordination programs/comments: : bonilla signed for Does the patient have electricity at home? : Yes Does the patient have running water in their house? : Yes Equipment in use: : Cane - Single Leg Mental health screen: : No mental health history Psychosocial status: : Adult with physical limitations Resources / Services in place: : Home health DCP Re-evaluation QUESTION: ANSWER Would patient like to participate in any Care Coordination programs (if applicable): : Not applicable PATIENT: TAMARA JOHNSON ENCOUNTER: [id number] MEDICAL RECORD#: [id number] ADMISSION DATE: 06/24/2020 DISCHARGE DATE: 07/02/2020 ATTENDING MD: MAGDALENA SANTIAGO : AGE: 55 MARITAL STATUS: D DC PLAN ID: [id number] FACILITY: [facility] PRINTED ON: 07/02/20 14:53 CT All edits/amendments must be made on the electronic document DICTATION DATE: 07/02/201452 VIDEOTAPE RECORDING ENGINEER: MAHIN 07/02/201452 RPT#: [id number] DC DATE:07/02/20 STATUS: DIS IN [facility] [address] [place] [address] END OF REPORT
--- NOTE | 2020-07-02 16:21 | NUR ---
OT NOTE: PT COMPLETED SUPINE TO SIT WITH CGA. PT COMPLETED ADL MOB WITH SPV. PT COMPLETED EOB SITTING BALANCE WITH FUNCTIONAL TASKS WITH SPV. PT COMPLETED SELF FEEDING TASKS WITH SPV. PT COMPLETED HAND HYGIENE AT SINK LEVEL WITH SPV. CL WITHIN REACH. [phone] THANK YOU,MIGDALIA RILEY
--- NOTE | 2020-07-05 10:17 | MORECARE ---
CASE MANAGEMENT DISCHARGE SUMMARY PATIENT: TAMARA JOHNSON UNIT: [id number] ADM DATE: 06/24/20 AGE: 55 : 67 SEX: M ROOM/BED: D.2219 AUTHOR: CHINTAN,DOC PHYSICIAN: REFERRING PHYSICIAN: MAGDALENA ORELLANA MD DATE OF SERVICE: 07/05/20 Case Management Discharge Planning Summary COMMENTS ENTERED DATE: 07/02/20 14:42 CT COMMENT TYPE: Discharge Planning REVIEWER: Yoanna Vega PATIENT DISCHARGED HOME WITH [facility], ALL ORDERS WERE SENT TO [facility] AND I SPOKE WITH LUDA AVILEZ ENTERED DATE: 06/30/20 14:56 CT COMMENT TYPE: Discharge Planning REVIEWER: Yoanna Vega CM met with patient to complete initial dc planning assessment. Patient was in SO much pain while I was in the room for my assessment. CM educated patient on the CM role and verbal consent given by patient to complete assessment. Patient lives at home by himself where he plans to return to when he is discharged. At discharge patient plans to return home and feels this is a safe discharge. I am unsure if this is the safest DC, due to his physical status and pain. He is agreeable for HH and [facility] signed with [facility]. He said that he would call a friend to take him home when it is time. He has a friend who helps clean a house. He has a cane that he uses, but right now he is in so much pain he can not ambulate. He is a patient of Dr Mahmood and uses [facility] on [address]. IMM served and explained. CM will continue to follow and will assist as needed with dc plans/needs. DCP REVIEW SUMMARY ANTICIPATED D/C DATE: EXPECTED LOS : CASE STATUS: DCP Initiated INITIAL REVIEW: 06/24/2020 INITIAL REVIEWER: Yoanna Vega FINAL DISCHARGE DISPOSITION: : FINAL REVIEWER: FINAL REVIEW DATE: DCP Focus Questions & Answers DCP Screen QUESTION: ANSWER High Risk Factors: : Polypharmacy (greater than 10 meds) DCP Evaluation QUESTION: ANSWER Family / Caregiver's ability to cope with chronic illness: : a. Adequate (ability to meet patient's medical needs, ensures patient attends medical appts.) Patient's current cognitive status: : *Oriented to person, place, situation, time and present Patient's ability to cope with chronic illness : d. No chronic illness Functional screen assessment: : New onset in difficulty in gait, balance, or transfer difficulties Family / Caregiver's ability to cope with chronic illness: : b. Minimal (occasionally not dependable to meet pt's. needs, can meet pt's. basic ADL's) Physical Status: : Independent with ADL's Equipment needed for post hospitalization: : Cane - Single Leg Is there a likelihood that the patient will require additional services to return to the preadmission environment? : Yes Functional screen comments: : needs pt/ot Living Arrangements: : Home Alone with Support Results of this evaluation have been discussed with: : Patient Patient with capacity for self-care or can be cared for in same environment as prior to hospitalization? : Yes Living arrangements comments: : lives alone and has some family and friends Baseline cognitive status: : *Oriented to person, place, situation, time and present Physical environment modification needed / anticipated for discharge: : Yes Comments: : will have home health Medication Management: : Patient states can afford medications Planned post hospital services available for patient? : Yes Pharmacy name(s): : [facility] unsure if he can afford medications Planned post hospital services covered by insurance plan? : Yes Does Patient have transportation to get home and to follow-up medical appointments when discharged from the hospital? : Yes Comments: : will call someone Would patient like to participate in any Care Coordination programs (if applicable): : Not applicable Other Care Coordination programs/comments: : [facility] signed for Does the patient have electricity at home? : Yes Does the patient have running water in their house? : Yes Equipment in use: : Cane - Single Leg Mental health screen: : No mental health history Psychosocial status: : Adult with physical limitations Resources / Services in place: : Home health DCP Re-evaluation QUESTION: ANSWER Would patient like to participate in any Care Coordination programs (if applicable): : Not applicable PATIENT: TAMARA JOHNSON ENCOUNTER: [id number] MEDICAL RECORD#: [id number] ADMISSION DATE: 06/24/2020 DISCHARGE DATE: 07/02/2020 ATTENDING MD: MAGDALENA SANTIAGO : AGE: 55 MARITAL STATUS: D DC PLAN ID: [id number] FACILITY: [facility] PRINTED ON: 07/05/20 10:17 CT All edits/amendments must be made on the electronic document DICTATION DATE: 07/05/20 1017 PRIMER INSPECTOR: MAHIN 07/05/20 1017 RPT#: [id number] DC DATE:07/02/20 STATUS: DIS IN [facility] [address] [place] [address] END OF REPORT
== END 2020-07-02 13:53 | disposition home health service (06) | DRG 603 ==
LOC: D.ER 15:13 → D.MS 17:28
PROVIDERS: Family Medicine; ADMIT Family Medicine; ATTEND Family Medicine
DX: L03.116 Cellulitis of left lower limb (principal); L03.115 Cellulitis of right lower limb; I25.10 Atherosclerotic heart disease of native coronary artery without angina pectoris; E78.5 Hyperlipidemia, unspecified; K21.9 Gastro-esophageal reflux disease without esophagitis; F41.8 Other specified anxiety disorders; B35.1 Tinea unguium; I11.0 Hypertensive heart disease with heart failure; I50.9 Heart failure, unspecified; Z74.01 Bed confinement status; I25.2 Old myocardial infarction; Z86.73 Personal history of transient ischemic attack (TIA), and cerebral infarction without residual deficits; Z72.0 Tobacco use; B37.9 Candidiasis, unspecified; R19.7 Diarrhea, unspecified; G62.9 Polyneuropathy, unspecified